=== PATIENT | female | born 1970 | race Caucasian/White ===

== ENCOUNTER 2018-03-07 16:52 | Outpatient (REF) | payer MEDICARE, MEDICAID, SELFPAY ==
[2018-03-07 20:50] LABS: TSH (W/Ref FT4) 80.66 uIU/mL (0.358-3.74)
[2018-03-07 21:34] LABS: FREE T4 0.83 ng/dL (0.76-1.46)
== END 2018-03-07 17:12 ==
LOC: NCHCN 16:52
PROVIDERS: Referring Provider Nurse Practitioner Family; Visit Provider Nurse Practitioner Family
DX: E03.9 Hypothyroidism, unspecified (principal); F32.9 Major depressive disorder, single episode, unspecified; J44.9 Chronic obstructive pulmonary disease, unspecified; F17.200 Nicotine dependence, unspecified, uncomplicated; R40.0 Somnolence; K74.60 Unspecified cirrhosis of liver; M54.5 Low back pain; G43.109 Migraine with aura, not intractable, without status migrainosus
CPT/HCPCS: 84439; 84443

== ENCOUNTER 2018-05-04 16:20 | Outpatient (REF) | payer MEDICARE, MEDICAID, SELFPAY ==
[2018-05-04 22:28] LABS: TSH (W/Ref FT4) 23.27 uIU/mL (0.358-3.74)
[2018-05-04 23:01] LABS: FREE T4 0.73 ng/dL (0.76-1.46)
== END 2018-05-04 16:40 ==
LOC: NCHCN 16:20
PROVIDERS: Visit Provider Nurse Practitioner Family
DX: J02.9 Acute pharyngitis, unspecified (principal); G43.109 Migraine with aura, not intractable, without status migrainosus; E03.9 Hypothyroidism, unspecified; J44.9 Chronic obstructive pulmonary disease, unspecified; M54.5 Low back pain; R40.0 Somnolence; F32.9 Major depressive disorder, single episode, unspecified; Z79.01 Long term (current) use of anticoagulants
CPT/HCPCS: 84439; 84443

== ENCOUNTER 2018-06-06 15:08 | Outpatient (REF) | payer MEDICARE, MEDICAID, SELFPAY ==
[2018-06-07 10:02] LABS: Anion Gap 11.1 mmol/L (3-11); BUN 22 mg/dL (7-18); CO2 30.9 mmol/L (21.0-32.0); Calcium 10.2 mg/dL (8.5-10.1); Chloride 97 mmol/L (98-107); Estimated GFR 48.58 (mL/min/1.73m2); Glucose 78 mg/dL (70-100); Potassium 4.1 mmol/L (3.5-5.1); Sodium 139 mmol/L (136-145)
[2018-06-07 10:33] LABS: TSH (W/Ref FT4) 127.88 uIU/mL (0.358-3.74)
[2018-06-07 10:37] LABS: Cholesterol 183 mg/dL (50-200); HDL Cholesterol 65 mg/dL (40-60); LDL CHOLESTEROL 99 mg/dL (<100); Triglyceride 73 mg/dL (30-150)
[2018-06-07 10:53] LABS: FREE T4 0.55 ng/dL (0.76-1.46)
== END 2018-06-06 15:28 ==
LOC: NCHCN 15:08
PROVIDERS: Visit Provider Nurse Practitioner Family
DX: E03.9 Hypothyroidism, unspecified (principal); I48.2 Chronic atrial fibrillation; G47.00 Insomnia, unspecified; J44.9 Chronic obstructive pulmonary disease, unspecified; F17.200 Nicotine dependence, unspecified, uncomplicated; G43.109 Migraine with aura, not intractable, without status migrainosus; J01.90 Acute sinusitis, unspecified; M54.5 Low back pain
CPT/HCPCS: 80048; 80061; 83721; 84439; 84443

== ENCOUNTER 2018-07-06 16:26 | Outpatient (REF) | payer MEDICARE, MEDICAID, SELFPAY ==
[2018-07-06 21:32] LABS: Calcium 10.6 mg/dL (8.5-10.1)
[2018-07-06 22:02] LABS: TSH (W/Ref FT4) 118.56 uIU/mL (0.358-3.74)
[2018-07-06 22:18] LABS: FREE T4 0.46 ng/dL (0.76-1.46)
== END 2018-07-06 16:46 ==
LOC: NCHCN 16:26
PROVIDERS: Visit Provider Nurse Practitioner Family
DX: E03.9 Hypothyroidism, unspecified (principal); J44.9 Chronic obstructive pulmonary disease, unspecified; F43.22 Adjustment disorder with anxiety; F17.200 Nicotine dependence, unspecified, uncomplicated; R40.0 Somnolence; M54.5 Low back pain; G43.109 Migraine with aura, not intractable, without status migrainosus
CPT/HCPCS: 82310; 84439; 84443

== ENCOUNTER 2018-07-12 14:42 | Outpatient (CLI) | payer MEDICARE, MEDICAID, SELFPAY ==
[2018-07-12 15:15] LABS: INR 1.5 (0.9-1.1)
== END 2018-07-12 15:02 ==
PROVIDERS: PCP Nurse Practitioner Family; Visit Provider Nurse Practitioner Family
DX: I48.92 Unspecified atrial flutter (principal); Z79.01 Long term (current) use of anticoagulants
CPT/HCPCS: 36415; 85610

== ENCOUNTER 2018-09-28 16:19 | Outpatient (CLI) | payer MEDICARE, MEDICAID, SELFPAY ==
[2018-09-28 16:52] LABS: Abs Immature Grans 0.01 k/cumm (0.0-0.09); Absolute Basophil Count 0.05 k/cumm (0.0-0.2); Absolute Lymphocyte Count 0.97 k/cumm (1.2-3.4); Absolute Monocyte Count 0.43 k/cumm (0.11-0.7); Absolute Neutrophil Count 3.87 k/cumm (1.2-6.7); Basophils % 0.9; Eosinophils % 1.8; HCT 38.6 % (36.0-46.0); HGB 13.2 g/dL (12.0-15.5); Immature Grans % 0.2; Lymphocytes % 17.9; Mean Corp. HGB Concentration 34.2 g/dL (32.0-36.0); Mean Corpuscular Hemoglobin 32.4 pg (27.0-33.0); Mean Corpuscular Volume 94.6 fL (80-95); Mean Platelet Volume 8.9 fL (8.0-11.0); Monocytes % 7.9; Neutrophils % 71.3; Platelet Count 123 x1000/uL (130-400); RBC 4.08 m/cumm (4.00-5.20); RBC Distribution Width 16.7 % (11.7-14.6); White Blood Cell Count 5.43 k/cumm (4.4-10.8)
[2018-09-28 17:49] LABS: Iron 92 ug/dL (50-175)
[2018-09-28 18:13] LABS: Vitamin D 25 Total 10.2 ng/ml (30-100)
[2018-09-28 18:25] LABS: ALT 32 U/L (12-78); AST 34 U/L (15-37); Albumin 4.8 g/dL (3.4-5.0); Alkaline Phosphatase 110 U/L (46-116); Anion Gap 9.9 mmol/L (3-11); BUN 26 mg/dL (7-18); CO2 30.1 mmol/L (21.0-32.0); Chloride 97 mmol/L (98-107); Estimated GFR 30.29 (mL/min/1.73m2); Ferritin 139 ng/mL (8-388); Glucose 119 mg/dL (70-100); Magnesium 2.1 mg/dL (1.8-2.4); Potassium 3.9 mmol/L (3.5-5.1); Sodium 137 mmol/L (136-145); Total Protein 8.3 g/dL (6.4-8.2); Vitamin B12 875 pg/mL (193-986)
[2018-09-28 19:10] LABS: TSH (W/Ref FT4) 279.79 uIU/mL (0.358-3.74)
[2018-09-28 20:15] LABS: FREE T4 0.33 ng/dL (0.76-1.46)
[2018-09-29 16:07] LABS: Ionized Calcium 1.12 mmol/L (1.12-1.32)
[2018-10-02 11:10] LABS: Parathyroid Hormone,Intact 132 pg/ml (19-88)
== END 2018-09-28 16:39 ==
PROVIDERS: PCP Nurse Practitioner Family; Visit Provider Nurse Practitioner Family
DX: R40.0 Somnolence (principal); D69.6 Thrombocytopenia, unspecified; E83.52 Hypercalcemia; E03.9 Hypothyroidism, unspecified
CPT/HCPCS: 36415; 80053; 82306; 82330; 82607; 82728; 83540; 83735; 83970; 84439; 84443; 85025

== ENCOUNTER 2018-10-04 14:39 | Outpatient (CLI) | payer MEDICARE, MEDICAID, SELFPAY ==
[2018-10-04 15:03] LABS: INR 3.2 (0.9-1.1); Prothrombin Time 32.5 sec (9.3-11.0)
== END 2018-10-04 14:59 ==
PROVIDERS: PCP Nurse Practitioner Family; Visit Provider Nurse Practitioner Family
DX: I48.92 Unspecified atrial flutter (principal); Z79.01 Long term (current) use of anticoagulants
CPT/HCPCS: 36415; 85610

== ENCOUNTER 2019-01-09 15:26 | Outpatient (CLI) | payer MEDICARE, MEDICAID, SELFPAY ==
[2019-01-09 16:14] LABS: INR 3.9 (0.9-1.1)
== END 2019-01-09 15:46 ==
PROVIDERS: PCP Nurse Practitioner Family; Visit Provider Nurse Practitioner Family
DX: I48.92 Unspecified atrial flutter (principal); Z79.01 Long term (current) use of anticoagulants
CPT/HCPCS: 36415; 85610

== ENCOUNTER 2019-02-20 10:40 | Outpatient (CLI) | payer MEDICARE, MEDICAID, SELFPAY ==
[2019-02-20 11:51] LABS: Absolute Basophil Count 0.04 k/cumm (0.0-0.2); Absolute Eosinophil Count 0.12 k/cumm (0.0-0.7); Absolute Monocyte Count 0.21 k/cumm (0.11-0.7); Absolute Neutrophil Count 2.04 k/cumm (1.2-6.7); Basophils % 1.2; Eosinophils % 3.7; HCT 40.2 % (36.0-46.0); HGB 13.1 g/dL (12.0-15.5); Lymphocytes % 24.9; Mean Corp. HGB Concentration 32.6 g/dL (32.0-36.0); Mean Corpuscular Volume 92.2 fL (80-95); Mean Platelet Volume 9.6 fL (8.0-11.0); Monocytes % 6.5; Neutrophils % 63.7; Platelet Count 139 x1000/uL (130-400); RBC 4.36 m/cumm (4.00-5.20); RBC Distribution Width 20.4 % (11.7-14.6); White Blood Cell Count 3.21 k/cumm (4.4-10.8)
[2019-02-20 11:53] LABS: Hemoglobin A1C 6.1 % (4.5-6.2); INR 2.8 (0.9-1.1); Prothrombin Time 28.4 sec (9.3-11.0)
[2019-02-20 12:40] LABS: Anisocytosis 2+; Diff Comment RBC Morph Reviewed; Hypochromasia 1+; Poikilocytes 1+
[2019-02-20 15:01] LABS: ALT 17 U/L (14-59); AST 18 U/L (15-37); Alkaline Phosphatase 110 U/L (46-116); Anion Gap 6.8 mmol/L (3-11); BUN 10 mg/dL (7-18); Bilirubin, Total 0.7 mg/dL (0.2-1.0); CO2 30.2 mmol/L (21.0-32.0); CREATININE 1.05 mg/dL (0.55-1.02); Calcium 9.4 mg/dL (8.5-10.1); Chloride 105 mmol/L (98-107); Estimated GFR 56.42 (mL/min/1.73m2); Glucose 81 mg/dL (70-100); Potassium 4.3 mmol/L (3.5-5.1); Sodium 142 mmol/L (136-145); TSH 95.31 uIU/mL (0.36-3.74); Total Protein 7.2 g/dL (6.4-8.2)
[2019-02-20 15:05] LABS: Digoxin < 0.20 ng/mL (0.90-2.00)
[2019-02-20 15:23] LABS: FREE T4 0.61 ng/dL (0.76-1.46); NT-proBNP 1101 pg/mL
[2019-02-20 21:14] LABS: Ionized Calcium 1.19 mmol/L (1.12-1.32)
[2019-02-21 11:32] LABS: AFP Tumor Marker <2.5 ng/mL (<8.1)
[2019-02-21 12:58] LABS: Parathyroid Hormone,Intact 113 pg/ml (19-88)
[2019-02-22 04:49] LABS: Vitamin D 25 Total 21.4 ng/ml (30-100)
== END 2019-02-20 11:00 ==
PROVIDERS: PCP Nurse Practitioner Family; Visit Provider Nurse Practitioner Family
DX: I48.92 Unspecified atrial flutter (principal); Z79.01 Long term (current) use of anticoagulants; J45.40 Moderate persistent asthma, uncomplicated; Q24.9 Congenital malformation of heart, unspecified; E03.9 Hypothyroidism, unspecified; E55.9 Vitamin D deficiency, unspecified; R79.89 Other specified abnormal findings of blood chemistry; J44.9 Chronic obstructive pulmonary disease, unspecified; K74.60 Unspecified cirrhosis of liver; E83.52 Hypercalcemia; Z51.81 Encounter for therapeutic drug level monitoring; R06.01 Orthopnea; R06.02 Shortness of breath
CPT/HCPCS: 36415; 80053; 82306; 80162; 82105; 82330; 83036; 83880; 83970; 84439; 84443; 84481; 85025; 85610

== ENCOUNTER 2019-02-22 18:17 | Outpatient (REF) | payer MEDICARE, MEDICAID, SELFPAY ==
--- NOTE | 2019-02-22 14:30 | PAPFT_PTH ---
PATIENT: Marissa Dumont [id number] AGE/SX: 48/F ROOM: RE02/22/[address]: Anna Rodriguez : 1970 BED: DIS: 02/22/2019 SPEC #: [id number] RECD: 02/23/19 13:06 STATUS: MARY REFabien #: [id number] CARMENCITA: 02/22/19 14:[address]: Anna Rodriguez DEPT: [facility] Cytology RECD BY: Lorraine Niño Tissues: 1 - CX/ENDOCX FOR PAP SMEARS Procedures: PAP THIN PREP/UVM Screening HPV DNA PROBE Comments: [id number] (CHLAMYDIA/GC)
[2019-02-26 14:08] LABS: Chlamydia Result Negative; GC Result Negative; Specimen Description SEE COMMENTS
== END 2019-02-22 18:37 ==
LOC: NCHCN 18:17
PROVIDERS: PCP Nurse Practitioner Family; Visit Provider Nurse Practitioner Family
DX: Z11.3 Encounter for screening for infections with a predominantly sexual mode of transmission (principal); Z12.4 Encounter for screening for malignant neoplasm of cervix; Z11.51 Encounter for screening for human papillomavirus (HPV)
CPT/HCPCS: 87491; 87591; 88142; 87624

== ENCOUNTER 2019-03-22 16:24 | Outpatient (REF) | payer MEDICARE, MEDICAID, SELFPAY ==
[2019-03-22 22:07] LABS: INR 2.1 (0.9-1.1)
== END 2019-03-22 16:44 ==
LOC: NCHCO 16:24
PROVIDERS: PCP Nurse Practitioner Family; Visit Provider Nurse Practitioner Family
DX: I48.20 Chronic atrial fibrillation, unspecified (principal); E21.5 Disorder of parathyroid gland, unspecified
CPT/HCPCS: 84443; 85610

== ENCOUNTER 2019-03-25 16:24 | Inpatient (IN) | payer MEDICARE, MEDICAID, SELFPAY ==
[2019-03-25] VITALS (17 sets, daily range): BP systolic 74–115; BP diastolic 14–69; PULSE 57–79; RESP 1–19; TEMP 36.7–38.5; O2SAT 85–95
--- NOTE | 2019-03-25 17:04 | DI.RAD_ITS ---
EXAM: XR CHEST 2V PA LATERAL INDICATION: cough. COMPARISON: RIGHT RIBS TO INCLUDE CXR from 12/28/2016 TECHNIQUE: 2D digital imaging was performed. FINDINGS: Patchy densities are noted in both lungs and could represent a multifocal pneumonitis. There is no p leural effusion. The heart is top limits of normal in size in this patient who is status post aortic valve replacement. IMPRESSION: Findings consistent with acute pneumonitis. Incidental note is made of new lateral fractures when com pared with the prior study dating back to 2016. There is an old right lateral rib fracture. The heart is top limits of normal in size to mildly enlarged.
[2019-03-25] MEDS: Lactated Ringers 500 ML IV ×2 (17:12→17:44)
[2019-03-25 17:17] LABS: Bilirubin Negative (Negative); Blood Trace-intact (Negative); Clarity Clear (Clear); Glucose Negative (Negative); Ketones Negative (Negative); Leukocyte Esterase Negative (Negative); Nitrite Negative (Negative)
[2019-03-25] MEDS: Albuterol/Ipratropium 3 ML UPD VIAL UPD (17:26)
--- NOTE | 2019-03-25 17:30 | W.ED.GENAD ---
Discharge Plan Disposition Patient Disposition: [facility] INPATIENT Condition: Fair Discharge Details Chief Complaint: Nausea/Vomit/Diar Clinical Impression: COPD exacerbation, Pneumonia Admit Date/Time: 03/25/19 19:07 Admit Provider: Geovanni Workman Attending Provider: Geovanni Workman Primary Care Provider: Anna Rodriguez ED Provider: Flakito Frias Discharge Instructions Activity:: Activity as Tolerated Equipment/Supplies:: 3.5 L at rest, 4 L with activity; also, a nebulizer machine Diet:: Heart healthy carb consistent Discharge Orders Discharge Orders: Discharge Order (Routine); Ordered 03/29/19 Ordered By: Yuliana Nunez Discharge Data Discharge Date/Time-TO BE ENTERED AT DEPARTURE: 03/25/19 20:35 Medical Decision Making Patient presenting to the emergency department for chief complaint of cough, nasal congestion, vomiting and diarrhea. Patient states this started 5 days ago with cough and cold-like symptoms with some diarrhea. Patient states the vomiting is mostly with severe coughing episodes. Today though with coughing she did have some blood-tinged sputum that was more of a concern for her. Patient has significant medical history of congenital heart disease, COPD with oxygen dependence, hypothyroidism, severe liver cirrhosis, asthma. Patient does state body aches, subjective fever, not having much oral intake today. Physical exam shows diffuse wheezing throughout all lung zacarias, unremarkable HEENT exam, some active dry cough, unremarkable abdominal exam. Plan to give IV fluids, check labs, chest x-ray, and give DuoNeb. Review of labs show negative influenza, no leukocytosis, mild anemia which is not severely different from previous episodes, slight thrombocytopenia at 87, nondiagnostic urine. Radiologist interpretation of chest x-ray shows Bilateral pneumonia. 2. New left lateral rib fractures compared to prior study April 2017. Old right lateral rib fractures.3. Cardiomegaly. Given patient's significant medical core morbidities with pneumonia I do feel the patient needs to be admitted. Patient started on Rocephin and doxy both given IV and hospitalist was consulted. Patient admitted to hospitalist services and patient is agreeable to this plan of care. HPI General Mode of arrival: ambulatory. Date/Time Provider Initiated Documentation: 03/25/19 16:27. Limitations to Documentation: no limitations. Information obtained by: patient and RN notes reviewed. History of Present Illness 48 year old F presents to the emergency department with the chief complaint of cough, vomitting, nasal congestion, described as moderate, with intensity rated at 7. Quality is described as aching, and is localized to the abdomen (from coughing). Patient started experiencing this day(s) (5) and it has been constant. No relieving factors improve symptom(s), No exacerbating factors reported . Patient did receive the following treatments prior to arrival, none Related Data Home Medications Medication Instructions Recorded Confirmed digoxin [Lanoxin] 250 mcg PO DAILY 10/16/12 03/25/19 fluticasone propion-salmeterol 1 ea INHALATION DAILY 10/16/12 03/25/19 [Advair Diskus] furosemide [Lasix] 40 mg PO DAILY 10/16/12 03/25/19 levothyroxine 200 mcg PO DAILY 10/16/12 03/25/19 ranitidine HCl [Zantac Maximum 150 mg PO BID 10/16/12 03/25/19 Strength] sotalol [Betapace] 80 mg PO BID 10/16/12 03/25/19 spironolactone 25 mg PO DAILY 10/16/12 03/25/19 albuterol sulfate [ProAir HFA] 2 puff INHALATION PRN 03/20/14 03/25/19 lisinopril 10 mg DAILY 03/28/14 03/25/19 Spiriva with HandiHaler 1 cap INHALATION DAILY 10/28/15 03/25/19 montelukast [Singulair] 10 mg PO DAILY PRN 10/28/15 03/25/19 sertraline 100 mg PO DAILY 10/28/15 03/25/19 Lactobacillus acidophilus 1 10 mg PO DAILY 03/13/19 03/25/19 billion cell capsule Oxygen #1 each 03/13/19 03/25/19 gabapentin 100 mg capsule 100 mg PO TID 03/13/19 03/25/19 albuterol sulfate 2.5 mg UPD Q2H PRN PRN #180 ml 03/29/19 prednisone See Rx Instructions .ROUTE 03/29/19 .COMPLEX #13 tab Previous Rx's Medication Instructions Recorded albuterol sulfate 2.5 mg UPD Q2H PRN PRN #180 ml 03/29/19 prednisone See Rx Instructions .ROUTE 03/29/19 .COMPLEX #13 tab Allergies Allergy/AdvReac Type Severity Reaction Status Date / Time varenicline [From Chantix] Allergy Unknown unknown Verified 03/25/19 16:43 meperidine HCl [From Demerol] AdvReac Intermediate headaches Unverified 03/25/19 16:43 General Stated Complaint: Nausea/Vomit/Diar BABS: 3 Review of Systems Constitutional Constitutional: Reports body ache(s), Reports chills, Reports fever(s), Reports headache(s) and Reports malaise ENT Ears, Nose, Mouth, and Throat: Reports as per HPI, Denies ear discharge, Denies otalgia, Reports headache(s), Reports nasal congestion, Denies neck pain and Denies sore throat Cardiovascular Cardiovascular: Denies chest pain and Denies dyspnea Respiratory Respiratory: Reports cough, Reports hemoptysis and Denies dyspnea Gastrointestinal Gastrointestinal: Reports diarrhea, Reports vomiting and Denies hematemesis Musculoskeletal Musculoskeletal: Denies neck pain Integumentary/Breasts Skin/Breast: Denies rash Neurologic Neurologic: Reports headache(s) [facility] Medical History (Updated 03/29/19 @ 11:20 by Yuliana Nunez MD) Asthma (Chronic) Congenital heart disease (Inactive) COPD (chronic obstructive pulmonary disease) (Chronic) Depression (Chronic) Hypothyroid (Chronic) Liver cirrhosis (Acute) Memory loss (Acute) Pacemaker (Acute) Stroke (Chronic) Surgical History (Updated 03/29/19 @ 11:20 by Yuliana Nunez MD) H/O cardiac pacemaker (Acute) H/O mitral valve replacement with mechanical valve (Acute) Repair of umbilical hernia (08/31/16) Social History Smoking/Tobacco Use Status: Current-Occasional Tobacco Type: cigarettes Alcohol Intake: never Drug use: Socially Substance use type: marijuana Do you feel safe at home: Yes Do you feel safe in your relationship?: Yes Exam Const General: cooperative, comfortable and no acute distress Orientation: alert and awake [facility] [place] Head: normal to inspection, normocephalic and atraumatic Ears: hearing grossly normal bilaterally and TM's normal bilaterally General nose exam: external nose normal Face and sinus: no erythema Mouth: oral mucosae normal, no drooling, no muffled voice and no trismus Throat: posterior oropharynx normal, tonsils normal and uvula midline Neck Neck: normal visual inspection, full ROM, no lymphadenopathy, no meningeal signs, trachea midline and supple Resp Effort & Inspection: normal respiratory effort and able to speak in complete sentences Auscultation: wheezes expiratory wheezes and scattered wheezes Cardio Rate: regular rate Rhythm: regular rhythm Heart Sounds: S1 normal, S2 normal, normal S1 and S2, no click, no gallops, no murmurs and no rubs GI Palpation: soft, no guarding, not rigid and nontender Skin General skin exam: no rashes or lesions noted and dry skin (warm) Neuro General: alert and awake Course Vital Signs Vital signs: Vital Signs Temperature 36.7 C 03/25/19 16:31 Pulse 66 03/25/19 16:31 Respiratory Rate 16 03/25/19 16:31 Blood Pressure 115/69 03/25/19 16:31 Pulse Oximetry 85 L 03/25/19 16:31 Temperature 36.7 C 03/25/19 16:31 Pulse 61 03/25/19 17:15 Pulse 61 03/25/19 17:15 Respiratory Rate 18 03/25/19 17:15 Respiratory Effort Non-Labored 03/25/19 16:45 Blood Pressure 108/47 L 03/25/19 17:15 Blood Pressure Mean 60 03/25/19 17:15 Pulse Oximetry 95 03/25/19 17:26 Oxygen Delivery Method Nasal Cannula 03/25/19 17:26 Oxygen Flow Rate 2 03/25/19 17:26 Pain Level 7 03/25/19 16:31 Lab/Test Results Lab/Test Results: 03/25/19 17:12 Nasopharynx Influenza Types A,B Antigen - Pending 03/25/19 17:04 Blood Blood Culture - Pending 03/25/19 17:04 Blood Blood Culture - Pending Laboratory Tests Range/Units 03/25/19 16:35 Urine Color (Yellow) Yellow Urine Clarity (Clear) Clear Urine pH (5-8) 5.0 Ur Specific [place] (1.005-1.025) 1.010 Urine Protein (Negative) mg/dL Negative Urine Ketones (Negative) mg/dL Negative Urine Blood (Negative) Trace-intact H Urine Nitrite (Negative) Negative Urine Bilirubin (Negative) Negative Urine Urobilinogen (Up TO 0.2) EU/dL 1.0 H Ur Leukocyte Esterase (Negative) Negative Urine Glucose (Negative) mg/dL Negative
[2019-03-25 17:36] LABS: Bacteria Negative HPF (Negative); C & S Indicated? No; Casts Negative LPF (Negative); Crystals Negative HPF (Negative); Epithelial Cells Few HPF (Negative); Mucus Negative (Negative); Other Cells Negative (Negative); RBC 0-2 (0-2); WBC 0-2 HPF (0-5)
[2019-03-25 17:45] LABS: Lactate 0.8 mmol/L (0.6-1.4)
[2019-03-25 17:51] LABS: Abs Immature Grans 0.01 k/cumm (0.0-0.09); Absolute Basophil Count 0.03 k/cumm (0.0-0.2); Absolute Eosinophil Count 0.06 k/cumm (0.0-0.7); Absolute Lymphocyte Count 0.83 k/cumm (1.2-3.4); Absolute Monocyte Count 0.71 k/cumm (0.11-0.7); Absolute Neutrophil Count 3.46 k/cumm (1.2-6.7); Basophils % 0.6; Eosinophils % 1.2; HCT 33.9 % (36.0-46.0); HGB 11.7 g/dL (12.0-15.5); Immature Grans % 0.2; Lymphocytes % 16.3; Mean Corp. HGB Concentration 34.5 g/dL (32.0-36.0); Mean Corpuscular Hemoglobin 32.1 pg (27.0-33.0); Mean Corpuscular Volume 93.1 fL (80-95); Mean Platelet Volume 11.7 fL (8.0-11.0); Monocytes % 13.9; Neutrophils % 67.8; RBC 3.64 m/cumm (4.00-5.20); RBC Distribution Width 16.9 % (11.7-14.6)
[2019-03-25 17:53] LABS: Platelet Count 87 x1000/uL (130-400)
[2019-03-25 18:05] LABS: ALT 28 U/L (14-59); AST 32 U/L (15-37); Alkaline Phosphatase 122 U/L (46-116); Anion Gap 11.7 mmol/L (3-11); BUN 19 mg/dL (7-18); Bilirubin, Total 3.1 mg/dL (0.2-1.0); CO2 25.3 mmol/L (21.0-32.0); CREATININE 1.17 mg/dL (0.55-1.02); Calcium 9.2 mg/dL (8.5-10.1); Chloride 101 mmol/L (98-107); Glucose 95 mg/dL (70-100); Lipase 87 U/L (73-393); Potassium 3.6 mmol/L (3.5-5.1); Sodium 138 mmol/L (136-145); Total Protein 7.8 g/dL (6.4-8.2)
[2019-03-25 18:15] LABS: Diff Comment PLT Morph Reviewed; RBC Morphology Normal
[2019-03-25] MEDS: Albuterol/Ipratropium 3 ML UPD VIAL (18:25)
--- NOTE | 2019-03-25 19:01 | DI.VRAD_ITS ---
PROCEDURE INFORMATION: Exam: XR Chest, 2 Views Exam date and time: 03/25/2019 6:35 PM Clinical history: 48 years old, female; Other: Cough; Prior surgery; Surgery date: 6+ months TECHNIQUE: Imaging protocol: XR of the chest Views: 2 views. COMPARISON: CR RIGHT RIBS TO INCLUDE CXR 04/26/2017 10:38 FINDINGS: Tubes, catheters and devices: Left catheter overlying the left upper shoulder and chest unchanged from prior study. The cardiac leads in place Lungs: Bilateral patchy infiltrates. Pleural space: Blunted left lateral costophrenic angle. Heart/Mediastinum: Prosthetic valve. Cardiomegaly. Bones/joints: Sternotomy wires in place. Lateral fractures. Old right lateral rib fractures. IMPRESSION: 1. Bilateral pneumonia. 2. New left lateral rib fractures compared to prior study April 2017. Old right lateral rib fractures. 3. Cardiomegaly. Dictated and Authenticated by: Lizbeth Alonso MD. Ordering:JOHN Fraga MD
[2019-03-25] MEDS: DOXYCYCLINE 100 MG in Normal Saline 100 ML IVPB (19:15)
[2019-03-25] MEDS: cefTRIAXone 1 GM/50 ML BAG IVPB (19:15)
[2019-03-25 19:23] LABS: INR 1.6 (0.9-1.1); Prothrombin Time 15.9 sec (9.3-11.0)
--- NOTE | 2019-03-25 19:23 | W.PM.HP.N ---
Date of service: 03/25/19 Time of Service: 19:24 Assessment and Plan Assessment and plan (1) Pneumonia: Start date: 03/25/19 Status: Acute Assessment and plan: This is a 48-year-old chronically ill patient with stable chronic problems presented with acute patchy bilateral infiltrates and pneumonia now with fever and hypoxemia. She was started on Rocephin and doxycycline which will be continued IV with her decreased oral intake. Follow-up imaging as appropriate and continue supportive care with nebulizers and oxygen supplementation. She does also have exacerbation of COPD. Qualifiers: Laterality: bilateral Lung location: unspecified part of lung Pneumonia type: due to unspecified organism Qualified Code(s): J18.9 - Pneumonia, unspecified organism (2) COPD exacerbation: Start date: 03/25/19 Status: Acute Assessment and plan: IV Solu-Medrol with nebulizer treatments more frequently. Patient is not smoking and is not requiring a nicotine supplement as of yet. Continue oxygen supplementation. (3) Cirrhosis: Status: Chronic Assessment and plan: This appears stable with increased liver function tests and decreased platelets. Follow closely for bleeding sequelae with the patient on warfarin for mechanical valve according to the patient though she also has a history of atrial fibrillation with a pacemaker and paced rhythm presently. Qualifiers: Ascites presence: unspecified Hepatic cirrhosis type: unspecified hepatic cirrhosis Qualified Code(s): K74.60 - Unspecified cirrhosis of liver (4) Atrial fibrillation: Status: Chronic Assessment and plan: Monitor on telemetry and continue Coumadin therapy adjusting to therapeutic INR. Qualifiers: Atrial fibrillation type: paroxysmal Qualified Code(s): I48.0 - Paroxysmal atrial fibrillation (5) Hypothyroidism: Status: Chronic Assessment and plan: This appears to be undertreated at this time and in the recent past and could be contributory metabolic disorders. He states that she takes her Synthroid each morning on empty stomach but this needs to be adjusted chronically and follow-up as an outpatient. Qualifiers: Hypothyroidism type: acquired Qualified Code(s): E03.9 - Hypothyroidism, unspecified History of Present Illness History of Present Illness Chief Complaint: Cough with dyspnea, vomiting and diarrhea over 5 days Narrative: This is a 48-year-old lady who presented to the ED with a 5-day history of viral type illness with upper respiratory symptoms and GI symptoms with diarrhea and vomiting. She had a cough which was worsening and it when she presented she was hypoxic with increased wheezing with a history of COPD and persistent tobacco use though she quit 5 days ago when she began to have her acute symptoms. In the ED she was found to have bilateral pneumonia by CXR and clinically was hypoxic eventually manifesting fever when she was brought to the floor and persistent cough with wheezing. 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 She is on Coumadin because of her mechanical valve and a history of PAF. She does have CKD with chronic anemia which appears stable. She did have decreased intake the last couple of days of her illness. She was doing well with oral intake at the time I saw her. She chronically has some edema which she is on diuretics but denies being on steroids in the past though she appears to have a ennis facies. Review of Systems Review of Systems Narrative: 13 point review of systems otherwise unrevealing or stable. [facility] Medical History (Updated 03/26/19 @ 01:31 by Geovanni Workman) Asthma (Chronic) Congenital heart disease (Inactive) COPD (chronic obstructive pulmonary disease) (Chronic) Depression (Chronic) Hypothyroid (Chronic) Liver cirrhosis (Acute) Memory loss (Acute) Pacemaker (Acute) Stroke (Chronic) Surgical History Repair of umbilical hernia (08/31/16) Social History Smoking/Tobacco Use Status: Current-Occasional Tobacco Type: cigarettes Alcohol Intake: never Drug use: Socially Substance use type: marijuana Do you feel safe at home: Yes Do you feel safe in your relationship?: Yes Meds Home Medications and Allergies Home Medications Medication Instructions Recorded Confirmed Type digoxin [Lanoxin] 250 mcg PO DAILY 10/16/12 03/25/19 History fluticasone propion-salmeterol 1 ea INHALATION DAILY 10/16/12 03/25/19 History [Advair 250/50 Diskus] furosemide [Lasix] 40 mg PO DAILY 10/16/12 03/25/19 History levothyroxine 200 mcg PO DAILY 10/16/12 03/25/19 History ranitidine HCl [Zantac] 150 mg PO BID 10/16/12 03/25/19 History sotalol [Betapace] 80 mg PO BID 10/16/12 03/25/19 History spironolactone 25 mg PO DAILY 10/16/12 03/25/19 History albuterol sulfate 3 ml NEB PRN 03/20/14 03/25/19 History albuterol sulfate [Proair Hfa] 2 puff INHALATION PRN 03/20/14 03/25/19 History lisinopril 10 mg DAILY 03/28/14 03/25/19 History montelukast [Singulair] 10 mg PO DAILY PRN 10/28/15 03/25/19 History sertraline 100 mg PO DAILY 10/28/15 03/25/19 History tiotropium bromide [Spiriva] 1 cap INHALATION DAILY 10/28/15 03/25/19 History warfarin [Coumadin] 8 mg PO HS 10/28/15 03/25/19 History Lactobacillus acidophilus 1 10 mg PO DAILY 03/13/19 03/25/19 History billion cell capsule Oxygen #1 each 03/13/19 03/25/19 History gabapentin 100 mg capsule 100 mg PO TID 03/13/19 03/25/19 History Allergies Allergy/AdvReac Type Severity Reaction Status Date / Time varenicline [From Chantix] Allergy Unknown unknown Verified 03/25/19 16:43 meperidine HCl [From Demerol] AdvReac Intermediate headaches Unverified 03/25/19 16:43 Exam Narrative Exam Narrative: General: Patient appears older than stated age with ennis facies and edema over her upper body and trunk but thin lower extremities. She is alert and oriented x3 and in no acute distress. HEENT: Normocephalic, ennis facies. Thin hair over her scalp. Ears normal. Oropharynx moist mucosa. Eyes with pupils equal and reactive to light symmetrically, extraocular movement intact and sclera anicteric. Neck: Supple without JVD. Lungs: Bronchovesicular breath sounds diffusely, increased expiratory phase with diffuse expiratory wheeze, no focalizing rales and upper airway rhonchi with cough. Poor aeration but no intercostal retractions with inspiration. Palpable pacemaker over chest. Heart: Regular rate and rhythm with 4/6 systolic murmur and mechanical valve click over the sternum. No appreciable gallop. No rubs. Breast: Not examined. Abdomen: obese contour, soft and nontender with no palpable hepatosplenomegaly. Bowel sounds positive in all quadrants. Genitalia/rectal: Not examined. Extremities: No pitting edema, no cyanosis or clubbing. Peripheral pulses intact with good capillary refill. Skin: Pale, warm and dry. No rashes noted. Normal turgor. Neuro: Cranial nerves II through XII grossly intact, motor and sensory grossly intact. Results Imaging Imaging Studies: Exam(s) PROCEDURE INFORMATION: Exam: XR Chest, 2 Views Exam date and time: 03/25/2019 6:35 PM Clinical history: 48 years old, female; Other: Cough; Prior surgery; Surgery date: 6+ months TECHNIQUE: Imaging protocol: XR of the chest Views: 2 views. COMPARISON: CR RIGHT RIBS TO INCLUDE CXR 04/26/2017 10:38 FINDINGS: Tubes, catheters and devices: Left catheter overlying the left upper shoulder and chest unchanged from prior study. The cardiac leads in place Lungs: Bilateral patchy infiltrates. Pleural space: Blunted left lateral costophrenic angle. Heart/Mediastinum: Prosthetic valve. Cardiomegaly. Bones/joints: Sternotomy wires in place. Lateral fractures. Old right lateral rib fractures. IMPRESSION: 1. Bilateral pneumonia. 2. New left lateral rib fractures compared to prior study April 2017. Old right lateral rib fractures. 3. Cardiomegaly. Dictated and Authenticated by: Lizbeth Alonso MD. Labs Result diagrams: 03/25/19 17:00 03/25/19 17:00 Labs: Laboratory Results - last 24 hr 03/25/19 03/25/19 03/25/19 16:35 17:00 17:00 WBC RBC Hgb Hct MCV MCH MCHC RDW Plt Count MPV Immature Gran % Neutrophils % Lymphocytes % Monocytes % Eosinophils % Basophils % Absolute Neutrophils Absolute Lymphocytes Absolute Monocytes Absolute Eosinophils Absolute Basophils Differential Comment RBC Morphology Sodium 138 Potassium 3.6 Chloride 101 Carbon Dioxide 25.3 Anion Gap 11.7 H BUN 19 H Creatinine 1.17 H Estimated GFR/1.73 m2 49.80 Glucose 95 Lactate 0.8 Calcium 9.2 Total Bilirubin 3.1 H AST 32 ALT 28 Alkaline Phosphatase 122 H Total Protein 7.8 Albumin 4.0 Lipase 87 Urine Color Yellow Urine Clarity Clear Urine pH 5.0 Ur Specific [place] 1.010 Urine Protein Negative Urine Ketones Negative Urine Blood Trace-intact H Urine Nitrite Negative Urine Bilirubin Negative Urine Urobilinogen 1.0 H Ur Leukocyte Esterase Negative Urine RBC 0-2 Urine WBC 0-2 Ur Epithelial Cells Few Urine Crystals Negative Urine Bacteria Negative Urine Casts Negative Urine Mucus Negative Urine Other Negative Ur Culture Indicated? No Urine Glucose Negative 03/25/19 17:00 WBC 5.10 RBC 3.64 L Hgb 11.7 L Hct 33.9 L MCV 93.1 MCH 32.1 MCHC 34.5 RDW 16.9 H Plt Count 87 L MPV 11.7 H Immature Gran % 0.2 Neutrophils % 67.8 Lymphocytes % 16.3 Monocytes % 13.9 Eosinophils % 1.2 Basophils % 0.6 Absolute Neutrophils 3.46 Absolute Lymphocytes 0.83 L Absolute Monocytes 0.71 H Absolute Eosinophils 0.06 Absolute Basophils 0.03 Differential Comment Plt morph reviewed RBC Morphology Normal Sodium Potassium Chloride Carbon Dioxide Anion Gap BUN Creatinine Estimated GFR/1.73 m2 Glucose Lactate Calcium Total Bilirubin AST ALT Alkaline Phosphatase Total Protein Albumin Lipase Urine Color Urine Clarity Urine pH Ur Specific [place] Urine Protein Urine Ketones Urine Blood Urine Nitrite Urine Bilirubin Urine Urobilinogen Ur Leukocyte Esterase Urine RBC Urine WBC Ur Epithelial Cells Urine Crystals Urine Bacteria Urine Casts Urine Mucus Urine Other Ur Culture Indicated? Urine Glucose Last Vital Signs Temp 36.7 C 03/25/19 16:31 Pulse 61 03/25/19 17:15 Resp 18 03/25/19 17:15 BP 108/47 L 03/25/19 17:15 Pulse Ox 95 03/25/19 17:26
[2019-03-25 19:32] LABS: Magnesium 1.7 mg/dL (1.8-2.4)
[2019-03-25 19:46] LABS: TSH (W/Ref FT4) 81.83 uIU/mL (0.36-3.74)
[2019-03-25 20:07] LABS: FREE T4 0.66 ng/dL (0.76-1.46)
[2019-03-25] MEDS: Albuterol 2.5 MG/3 ML INH SOLN VIAL UPD (22:48)
[2019-03-25] MEDS: methylPREDNISolone SUCC 125 MG VIAL (22:49)
[2019-03-25] MEDS: Gabapentin 100 MG CAP PO (22:50)
[2019-03-25] MEDS: Warfarin 4 MG TAB 8 MG PO (22:50)
[2019-03-25] MEDS: Normal Saline Flush 10 ML SYR IVP (22:50)
[2019-03-26] VITALS (19 sets, daily range): BP systolic 94–105; BP diastolic 55–64; PULSE 57–77; RESP 1–20; TEMP 36.2–37.1; O2SAT 90–94
[2019-03-26] MEDS: Albuterol/Ipratropium 3 ML UPD VIAL UPD ×5 (00:18→23:39)
[2019-03-26] MEDS: Normal Saline Flush 10 ML SYR IVP ×5 (03:54→19:50)
[2019-03-26] MEDS: methylPREDNISolone SUCC 125 MG VIAL 80 MG IVP ×3 (03:54→19:49)
[2019-03-26] MEDS: Levothyroxine 100 MCG TAB 200 MCG PO (05:58)
[2019-03-26 07:05] LABS: ALT 23 U/L (14-59); AST 25 U/L (15-37); Albumin 3.8 g/dL (3.4-5.0); Alkaline Phosphatase 123 U/L (46-116); Anion Gap 11.7 mmol/L (3-11); BUN 17 mg/dL (7-18); Bilirubin, Total 2.7 mg/dL (0.2-1.0); CO2 26.3 mmol/L (21.0-32.0); CREATININE 1.37 mg/dL (0.55-1.02); Calcium 9.5 mg/dL (8.5-10.1); Chloride 101 mmol/L (98-107); Estimated GFR 41.51 (mL/min/1.73m2); Glucose 141 mg/dL (70-100); Potassium 3.5 mmol/L (3.5-5.1); Sodium 139 mmol/L (136-145); Total Protein 7.9 g/dL (6.4-8.2)
[2019-03-26 07:10] LABS: HCT 36.7 % (36.0-46.0); HGB 12.6 g/dL (12.0-15.5); Mean Corp. HGB Concentration 34.3 g/dL (32.0-36.0); Mean Corpuscular Hemoglobin 32.1 pg (27.0-33.0); Mean Corpuscular Volume 93.6 fL (80-95); Mean Platelet Volume 10.7 fL (8.0-11.0); RBC 3.92 m/cumm (4.00-5.20); RBC Distribution Width 16.5 % (11.7-14.6); White Blood Cell Count 5.01 k/cumm (4.4-10.8)
[2019-03-26 07:11] LABS: Digoxin 0.83 ng/mL (0.90-2.00); INR 1.7 (0.9-1.1)
[2019-03-26 07:57] LABS: Platelet Count 92 x1000/uL (130-400)
[2019-03-26 08:50] LABS: Magnesium 1.7 mg/dL (1.8-2.4)
[2019-03-26 09:02] LABS: Procalcitonin 0.1 ng/mL
[2019-03-26] MEDS: Enoxaparin 80 MG/0.8 ML SYR 70 MG SC ×2 (09:04→19:49)
[2019-03-26] MEDS: DOXYCYCLINE 100 MG in Normal Saline 100 ML IVPB ×2 (09:05→19:50)
[2019-03-26] MEDS: Digoxin 0.125 MG TAB 0.25 MG PO (09:06)
[2019-03-26] MEDS: Gabapentin 100 MG CAP PO ×3 (09:10→19:51)
[2019-03-26] MEDS: Sertraline 50 MG TAB 100 MG PO (09:10)
[2019-03-26] MEDS: Lactobacillus Acidophilus CAP 1 CAP PO (09:10)
--- NOTE | 2019-03-26 09:50 | INITIAL_ITS ---
- If Service Date Differs Date of service: 03/26/19 Time of Service: 09:50 Care Management Initial Assess REASON FOR HOSPITALIZATION:: Pneumonia PAST MEDICAL HISTORY/PAST SURGICAL HISTORY:: Medical History: Asthma (Chronic). Congenital heart disease (Inactive). COPD (chronic obstructive pulmonary disease) (Chronic). Depression (Chronic). Hypothyroid (Chronic). Liver cirrhosis (Acute). Memory loss (Acute). Pacemaker (Acute). Stroke (Chronic). Surgical History : Repair of umbilical hernia (08/31/16) PREVIOUS FUNCTIONAL STATUS/SOCIAL/FAMILY SUPPORTS:: Marissa lives in a single family home in [place] with her boyfriend Chapo, another male roomate Benny and 3 cats. She has been disabled for the last 3 years. She has a congenital heart condition, asthma and COPD. Before she became disabled, Marissa worked at [employer] in [facility]. She has no children and identifies the people she lives with as her supports. CURRENT FUNCTIONAL STATUS:: Marissa was sitting up in bed and readily engaged in conversation with CM during visit. She was pleasant and cooperative and smiled frequently during the interaction. Marissa stated she is feeling much better and hopes to be able to go home tomorrow. ADVANCE DIRECTIVES:: None on file Has patient been provided with information about the portal?: No Did the patient sign up for the portal?: No CODE STATUS:: Full Code INSURANCE COVERAGE / FINANCIAL ISSUES:: Medicare. Medicaid CURRENT HOME/COMMUNITY SERVICES/EQUIPMENT:: Marissa receives food stamps. She also uses home oxygen at 3.5 liters continuously, which is coordinated through [facility]. PRIMARY CARE PHYSICIAN:: Anna Rodriguez POTENTIAL DISCHARGE NEEDS:: Follow up with PCP and disscharge plan of care PATIENT/FAMILY EDUCATION NEEDS:: Discharge plan, limitations, follow up plan. Ask Me Three. ANTICIPATED BARRIERS TO DISCHARGE:: none identified TRANSPORTATION:: via private vehicle with boyfriend when ready. PLAN:: Marissa will likely be discharged home with no new services. She will continue to use home oxygen. She will need to follow up with her PCP and p ossibly Pulmonology.She will transport home via private vehicle with her boyfriend or roomate.
[2019-03-26] MEDS: Budesonide/Formoterol 160/4.5 6 GM 60 PUFF INH IH ×2 (09:58→19:50)
--- NOTE | 2019-03-26 10:36 | PHARADMIT ---
Addendum entered by Jammie Figueroa 03/28/19 17:08: Pharmacy Note Subjective COPD/asthma exac much better Objective INR 6.6 Assessment CXR is much better today Plan Vitamin K to be given today per morning meeting IV steroids switched to PO Continue abx (today is day 4), finish tomorrow Addendum entered by Antonella Skaggs 03/27/19 13:36: Pharmacy Note Subjective improvement but not back to baseline per Md note Objective vs ok, INR 3.9, FS 123, sputum scant growth, BC no growth 24 hours, Assessment warfarin put on hold, enoxaparin stopped, ceftriaxone and doxy continue day 2 Plan follow FS, home meds not ordered : spiriva furosemide, lisinopril and spirolnolactone were discontinued Original Note: Admission Pharmacy Clinical Review pneumonia w/hypoxemia, COPD exacerbation Code Status Full Code Current Weight 65.7 kg Renally Cleared and Narrow Therapeutic Index Meds Crcl ~45.6 mL/min using adjusted body weight digoxin- level was 0.83 QTc Value / Action Taken n/a BP Control, Fever BP 94/55 Tmax 38.5 overnight Electrolytes reviewed mag 1.7 DVT Prophylaxis enoxaprin and warfarin Opiate Usage / Scheduled Bowel Regimen Ordered no/prn Plt/SCr for Heparin / Enoxaparin plt 92 SCr 1.37 INR for Warfarin INR 1.7 H/H stable, WBC/Bands h/h 12.6/36.7 wbc 5.01 Antibiotic appropriateness ceftriaxone and doxycycline Cultures and Sensitivities blood and sputum cultures pending rapid flu negative Surgical ABX d/c within 24 hr n/a DM control / Insulin Dosing BG 141 sliding scale aspart ordered Heart Failure (Check EF%) (AYANA's, B-Block, Diuretics) sotalol IV to PO Switch n/a Home Meds Reviewed sotalol may diminish the bronchodilatory effects of albuterol and foromoterol Home Meds Not Ordered advair (symbicort ordered), spiriva furosemide, lisinopril and spirolnolactone were discontinued Comments watch plt and INR TSH-81.73 free T4-0.66
[2019-03-26] MEDS: Insulin Aspart 300 UNITS/3 ML PEN SC ×3 (12:03→21:43)
[2019-03-26] MEDS: cefTRIAXone 1 GM/50 ML BAG IVPB (17:26)
--- NOTE | 2019-03-26 18:10 | PGE_ITS ---
Date of Service Date of service: 03/26/19 Time of Service: 18:10 Assessment and Plan Assessment and plan (1) COPD exacerbation: Status: Acute Assessment and plan: COPD/asthma exacerbation. Improving. Continue empiric antibiotics, scheduled/prn nebs, steroids - would start taper tomorrow. Symbicort added in place of home advair. Smoking cessation counseling. (2) CAP (community acquired pneumonia): Status: Acute Assessment and plan: As above (3) Elevated parathyroid hormone: Status: Acute Assessment and plan: Obtain thyroid US (4) Atrial fibrillation: Status: Chronic Assessment and plan: S/p pacer - 100% VPaced on tele. Rate controlled. No change in therapy. Continue anticoagulation. Qualifiers: Atrial fibrillation type: paroxysmal Qualified Code(s): I48.0 - Paroxysmal atrial fibrillation (5) Hypothyroidism: Status: Chronic Assessment and plan: TSH quite elevated, which is chronic for this patient, but she fell out of follow up with endocrine. Will speak with [facility] endocrinology and send an outpatient referral. My impression is that the patient is s/p radioiodine ablation at the age of 17. Qualifiers: Hypothyroidism type: acquired Qualified Code(s): E03.9 - Hypothyroidism, unspecified (6) History of mitral valve replacement with mechanical valve: Status: Acute Assessment and plan: INR subtherapeutic. On lovenox bridge until INR becomes therapeutic. (7) DVT prophylaxis: Status: Acute Assessment and plan: On lovenox bridge until therapeutic INR is reached. (8) Discharge planning issues: Status: Acute Assessment and plan: Full code. Will need outpatient endocrinology follow up with [facility]. Subjective Subjective Interval history since last seen: Ms Dumont states she is feeling better today. Denies dizziness, chest pain, nausea, vomiting. Wheezing is better and cough has become less productive. PCP requests ultrasound of her thyroid. The patient is open to the idea of follow up with [facility] endocrinology. Exam Narrative Exam Narrative: General: very pleasant middle-aged female, A&Ox3, sitting in bed, eating dinner. No difficulty completing sentences. HEENT: EOMI, MMM Heart: RRR, +AYUSH (of mechanical valve) Lungs: wheezing on expiration B GI: abdomen is soft, nontender, nondistended Extremities: no e/c/c BLE's Objective Objective Clinical Data: Abnormal lab results 03/25/19 03/25/19 03/25/19 Range/Units 17:00 17:00 17:00 RBC (4.00-5.20) m/cumm RDW (11.7-14.6) % Plt Count (130-400) x1000/uL Absolute Lymphocytes 0.83 L (1.2-3.4) k/cumm Absolute Monocytes 0.71 H (0.11-0.7) k/cumm PT 15.9 H (9.3-11.0) sec INR 1.6 H (0.9-1.1) APTT 34.0 H (21.0-31.4) sec Anion Gap 11.7 H (3-11) mmol/L BUN 19 H (7-18) mg/dL Creatinine 1.17 H (0.55-1.02) mg/dL Glucose (70-100) mg/dL Magnesium (1.8-2.4) mg/dL Total Bilirubin 3.1 H (0.2-1.0) mg/dL Alkaline Phosphatase 122 H (46-116) U/L TSH (0.36-3.74) uIU/mL Free T4 (0.76-1.46) ng/dL Digoxin (0.90-2.00) ng/mL 03/25/19 03/25/19 03/26/19 Range/Units 17:00 17:00 05:35 RBC 3.92 L (4.00-5.20) m/cumm RDW 16.5 H (11.7-14.6) % Plt Count 92 L (130-400) x1000/uL Absolute Lymphocytes (1.2-3.4) k/cumm Absolute Monocytes (0.11-0.7) k/cumm PT (9.3-11.0) sec INR (0.9-1.1) APTT (21.0-31.4) sec Anion Gap (3-11) mmol/L BUN (7-18) mg/dL Creatinine (0.55-1.02) mg/dL Glucose (70-100) mg/dL Magnesium 1.7 L (1.8-2.4) mg/dL Total Bilirubin (0.2-1.0) mg/dL Alkaline Phosphatase (46-116) U/L TSH 81.83 H (0.36-3.74) uIU/mL Free T4 0.66 L (0.76-1.46) ng/dL Digoxin (0.90-2.00) ng/mL 03/26/19 03/26/19 03/26/19 Range/Units 06:28 06:28 06:28 RBC (4.00-5.20) m/cumm RDW (11.7-14.6) % Plt Count (130-400) x1000/uL Absolute Lymphocytes (1.2-3.4) k/cumm Absolute Monocytes (0.11-0.7) k/cumm PT 17.0 H (9.3-11.0) sec INR 1.7 H (0.9-1.1) APTT (21.0-31.4) sec Anion Gap 11.7 H (3-11) mmol/L BUN (7-18) mg/dL Creatinine 1.37 H (0.55-1.02) mg/dL Glucose 141 H (70-100) mg/dL Magnesium 1.7 L (1.8-2.4) mg/dL Total Bilirubin 2.7 H (0.2-1.0) mg/dL Alkaline Phosphatase 123 H (46-116) U/L TSH (0.36-3.74) uIU/mL Free T4 (0.76-1.46) ng/dL Digoxin 0.83 L (0.90-2.00) ng/mL Vital Signs Temperature 36.6 C 03/26/19 16:13 Temperature Source Tympanic 03/26/19 16:13 Pulse 60 03/26/19 16:13 Pulse Rhythm Regular 03/26/19 18:01 Pulse 61 03/25/19 17:15 Respiratory Rate 17 03/26/19 16:13 Respiratory Effort Short of Breath 03/26/19 18:01 Respiratory Depth Normal 03/26/19 18:01 Respiratory Pattern Normal 03/26/19 18:01 Blood Pressure 101/57 L 03/26/19 16:13 Blood Pressure Mean 60 03/25/19 17:15 Pulse Oximetry 91 L 03/26/19 16:13 Oxygen Delivery Method Room Air 03/26/19 16:13 Oxygen Flow Rate 0 03/26/19 16:13 Pain Level 0 03/26/19 16:13 Comment 03/26/19 09:30 Intake & Output 03/25/19 03/26/19 03/26/19 23:59 11:59 23:59 Intake Total 1150 / 1150 750 / 1090 340 / 1090 Output Total 100 / 100 100 / 100 Balance 1050 / 1050 650 / 990 340 / 990 Weight 67.1 kg 65.7 kg Intake: IV 1150 / 1150 20 / 120 100 / 120 Oral 730 / 970 240 / 970 Output: Urine 100 / 100 100 / 100 Other: Urine Color Pale Pale Yellow Yellow Urine Appearance Clear Clear Clear Urine Odor Normal Normal Stool Size Small Small Stool Characteristics Liquid Liquid Brown Brown Voiding Methods Toilet Toilet Laboratory Results WBC 5.01 k/cumm (4.4-10.8) 03/26/19 05:35 RBC 3.92 m/cumm (4.00-5.20) L 03/26/19 05:35 Hgb 12.6 g/dL (12.0-15.5) 03/26/19 05:35 Hct 36.7 % (36.0-46.0) 03/26/19 05:35 MCV 93.6 fL (80-95) 03/26/19 05:35 MCH 32.1 pg (27.0-33.0) 03/26/19 05:35 MCHC 34.3 g/dL (32.0-36.0) 03/26/19 05:35 RDW 16.5 % (11.7-14.6) H 03/26/19 05:35 Plt Count 92 x1000/uL (130-400) L 03/26/19 05:35 MPV 10.7 fL (8.0-11.0) 03/26/19 05:35 Immature Gran % 0.2 03/25/19 17:00 Neutrophils % 67.8 03/25/19 17:00 Lymphocytes % 16.3 03/25/19 17:00 Monocytes % 13.9 03/25/19 17:00 Eosinophils % 1.2 03/25/19 17:00 Basophils % 0.6 03/25/19 17:00 Absolute Neutrophils 3.46 k/cumm (1.2-6.7) 03/25/19 17:00 Absolute Lymphocytes 0.83 k/cumm (1.2-3.4) L 03/25/19 17:00 Absolute Monocytes 0.71 k/cumm (0.11-0.7) H 03/25/19 17:00 Absolute Eosinophils 0.06 k/cumm (0.0-0.7) 03/25/19 17:00 Absolute Basophils 0.03 k/cumm (0.0-0.2) 03/25/19 17:00 Differential Comment Plt morph reviewed 03/25/19 17:00 RBC Morphology Normal 03/25/19 17:00 PT 17.0 sec (9.3-11.0) H 03/26/19 06:28 INR 1.7 (0.9-1.1) H 03/26/19 06:28 APTT 34.0 sec (21.0-31.4) H 03/25/19 17:00 Sodium 139 mmol/L (136-145) 03/26/19 06:28 Potassium 3.5 mmol/L (3.5-5.1) 03/26/19 06:28 Chloride 101 mmol/L (98-107) 03/26/19 06:28 Carbon Dioxide 26.3 mmol/L (21.0-32.0) 03/26/19 06:28 Anion Gap 11.7 mmol/L (3-11) H 03/26/19 06:28 BUN 17 mg/dL (7-18) 03/26/19 06:28 Creatinine 1.37 mg/dL (0.55-1.02) H 03/26/19 06:28 Estimated GFR/1.73 m2 41.51 (mL/min/1.73m2) 03/26/19 06:28 Glucose 141 mg/dL (70-100) H 03/26/19 06:28 Lactate 0.8 mmol/L (0.6-1.4) 03/25/19 17:00 Calcium 9.5 mg/dL (8.5-10.1) 03/26/19 06:28 Magnesium 1.7 mg/dL (1.8-2.4) L 03/26/19 06:28 Total Bilirubin 2.7 mg/dL (0.2-1.0) H 03/26/19 06:28 AST 25 U/L (15-37) 03/26/19 06:28 ALT 23 U/L (14-59) 03/26/19 06:28 Alkaline Phosphatase 123 U/L (46-116) H 03/26/19 06:28 Total Protein 7.9 g/dL (6.4-8.2) 03/26/19 06:28 Albumin 3.8 g/dL (3.4-5.0) 03/26/19 06:28 Lipase 87 U/L (73-393) 03/25/19 17:00 Procalcitonin 0.1 ng/mL 03/26/19 06:28 TSH 81.83 uIU/mL (0.36-3.74) H 03/25/19 17:00 Free T4 0.66 ng/dL (0.76-1.46) L 03/25/19 17:00 Urine Color Yellow (Yellow) 03/25/19 16:35 Urine Clarity Clear (Clear) 03/25/19 16:35 Urine pH 5.0 (5-8) 03/25/19 16:35 Ur Specific [place] 1.010 (1.005-1.025) 03/25/19 16:35 Urine Protein Negative mg/dL (Negative) 03/25/19 16:35 Urine Ketones Negative mg/dL (Negative) 03/25/19 16:35 Urine Blood Trace-intact (Negative) H 03/25/19 16:35 Urine Nitrite Negative (Negative) 03/25/19 16:35 Urine Bilirubin Negative (Negative) 03/25/19 16:35 Urine Urobilinogen 1.0 EU/dL (Up TO 0.2) H 03/25/19 16:35 Ur Leukocyte Esterase Negative (Negative) 03/25/19 16:35 Urine RBC 0-2 (0-2) 03/25/19 16:35 Urine WBC 0-2 HPF (0-5) 03/25/19 16:35 Ur Epithelial Cells Few HPF (Negative) 03/25/19 16:35 Urine Crystals Negative HPF (Negative) 03/25/19 16:35 Urine Bacteria Negative HPF (Negative) 03/25/19 16:35 Urine Casts Negative LPF (Negative) 03/25/19 16:35 Urine Mucus Negative (Negative) 03/25/19 16:35 Urine Other Negative (Negative) 10/06/19 16:35 Ur Culture Indicated? No 03/25/19 16:35 Urine Glucose Negative mg/dL (Negative) 03/25/19 16:35 Digoxin 0.83 ng/mL (0.90-2.00) L 03/26/19 06:28
[2019-03-26 18:23] LABS: T3, Total 43 ng/dl (97-169)
[2019-03-26] MEDS: Warfarin 4 MG TAB 8 MG PO (21:43)
[2019-03-27] VITALS (17 sets, daily range): BP systolic 90–111; BP diastolic 50–72; PULSE 62–78; RESP 1–20; TEMP 36–36.9; O2SAT 89–94
[2019-03-27] MEDS: methylPREDNISolone SUCC 125 MG VIAL 80 MG IVP (03:45)
[2019-03-27] MEDS: Normal Saline Flush 10 ML SYR IVP ×2 (03:46→15:50)
[2019-03-27 06:51] LABS: Abs Immature Grans 0.01 k/cumm (0.0-0.09); Absolute Monocyte Count 0.36 k/cumm (0.11-0.7); Absolute Neutrophil Count 4.41 k/cumm (1.2-6.7); HCT 34.6 % (36.0-46.0); HGB 11.6 g/dL (12.0-15.5); Immature Grans % 0.2; Lymphocytes % 9.5; Mean Corp. HGB Concentration 33.5 g/dL (32.0-36.0); Mean Corpuscular Hemoglobin 31.4 pg (27.0-33.0); Mean Corpuscular Volume 93.5 fL (80-95); Mean Platelet Volume 11.3 fL (8.0-11.0); Monocytes % 6.8; Neutrophils % 83.5; Platelet Count 105 x1000/uL (130-400); RBC Distribution Width 16.2 % (11.7-14.6); White Blood Cell Count 5.28 k/cumm (4.4-10.8)
[2019-03-27] MEDS: Albuterol/Ipratropium 3 ML UPD VIAL UPD ×4 (06:57→23:51)
[2019-03-27 07:02] LABS: Anion Gap 7.2 mmol/L (3-11); BUN 22 mg/dL (7-18); CO2 28.8 mmol/L (21.0-32.0); CREATININE 1.06 mg/dL (0.55-1.02); Calcium 9.8 mg/dL (8.5-10.1); Chloride 104 mmol/L (98-107); Estimated GFR 55.81 (mL/min/1.73m2); Glucose 164 mg/dL (70-100); INR 3.9 (0.9-1.1); Magnesium 1.7 mg/dL (1.8-2.4); Potassium 4.1 mmol/L (3.5-5.1); Prothrombin Time 37.5 sec (9.3-11.0); Sodium 140 mmol/L (136-145)
[2019-03-27 07:20] LABS: Procalcitonin < 0.1 ng/mL
[2019-03-27] MEDS: Budesonide/Formoterol 160/4.5 6 GM 60 PUFF INH IH ×2 (07:24→20:15)
[2019-03-27] MEDS: Levothyroxine 100 MCG TAB 200 MCG PO (07:26)
[2019-03-27] MEDS: Digoxin 0.125 MG TAB 0.25 MG PO (07:58)
[2019-03-27] MEDS: Sertraline 50 MG TAB 100 MG PO (07:58)
[2019-03-27] MEDS: Gabapentin 100 MG CAP PO ×3 (07:58→20:15)
[2019-03-27] MEDS: DOXYCYCLINE 100 MG in Normal Saline 100 ML IVPB ×2 (07:59→20:50)
[2019-03-27] MEDS: Lactobacillus Acidophilus CAP 1 CAP PO (07:59)
--- NOTE | 2019-03-27 08:00 | DI.US_ITS ---
EXAM: US THYROID CLINICAL HISTORY: hyperparathyroidism. TECHNIQUE: Ultrasound performed using standard protocol. COMPARISON: No exams were available for comparison FINDINGS: The right lobe measures 4.7 x 1.3 x 1 cm. The left lobe measures 3.6 x 1.3 x 1 cm. There is a 4 mi llimeter hypoechoic nodule in the mid to lower left lobe of the thyroid. Lateral and inferior to the left lobe of the thyroid, there is an additional hypoechoic nodule measuring 6 millimeters. This co uld represent an additional incidental thyroid nodule or could represent a small parathyroid mass. IMPRESSION: Heterogeneous thyroid gland. Question of 6 millimeter parathyroid mass versus left thyroid nodule.
[2019-03-27] MEDS: MAGNESIUM SULFATE 2 GM/50 ML BAG IVPB (09:52)
--- NOTE | 2019-03-27 12:37 | PGE_ITS ---
Date of Service Date of service: 03/27/19 Time of Service: 12:37 Assessment and Plan Assessment and plan (1) COPD exacerbation: Status: Acute Assessment and plan: COPD/asthma exacerbation. Improving, but not ready for discharge. Continue empiric antibiotics, scheduled/prn nebs, start to taper steroids, continue symbicort. We spoke at length about smoking cessation. (2) CAP (community acquired pneumonia): Status: Acute Assessment and plan: As above (3) Elevated parathyroid hormone: Status: Acute Assessment and plan: Obtain thyroid US and refer to [facility] endocrinology (4) Atrial fibrillation: Status: Chronic Assessment and plan: S/p pacer - 100% VPaced on tele. Rate controlled. D/c tele. Hold coumadin and lovenox today. INR supratherapeutic. Qualifiers: Atrial fibrillation type: paroxysmal Qualified Code(s): I48.0 - Paroxysmal atrial fibrillation (5) Hypothyroidism: Status: Chronic Assessment and plan: TSH quite elevated, which is chronic for this patient, but she fell out of follow up with endocrine. s/p radioiodine ablation at the age of 17 at [facility], but wants to go to [facility] for follow up. Consulting endocrine. Qualifiers: Hypothyroidism type: acquired Qualified Code(s): E03.9 - Hypothyroidism, unspecified (6) History of mitral valve replacement with mechanical valve: Status: Acute Assessment and plan: INR supratherapeutic today - d/c lovenox, hold coumadin. (7) DVT prophylaxis: Status: Acute Assessment and plan: as above - INR supratherapeutic today (8) Discharge planning issues: Status: Acute Assessment and plan: Full code. Will need outpatient endocrinology follow up with [facility]. Subjective Subjective Interval history since last seen: Ms Dumont states she feels better today, but she is not back to baseline. Still short of breath and wheezing. Denies dizziness, chest pain, nausea/vomiting. We spoke about smoking - she states she hasn't smoked tobacco products in at least 2-3 months, but she does smoke marijuana. I explained to her that this could also affect her lungs negatively and she will consider that. We spoke about not smoking while wearing oxygen - she states she never wears the oxygen when she smokes, she takes it off. Exam Narrative Exam Narrative: General: very pleasant middle-aged female, A&Ox3, sitting in bed, hoarse voice, no tachypnea/dyspnea noted. HEENT: EOMI, MMM Heart: RRR, +AYUSH (of mechanical valve) Lungs: wheezing on expiration B, about the same as yesterday GI: abdomen is soft, nontender, nondistended Extremities: no e/c/c BLE's Objective Objective Clinical Data: Abnormal lab results 03/27/19 03/27/19 03/27/19 Range/Units 06:20 06:20 06:20 RBC 3.70 L (4.00-5.20) m/cumm Hgb 11.6 L (12.0-15.5) g/dL Hct 34.6 L (36.0-46.0) % RDW 16.2 H (11.7-14.6) % Plt Count 105 L (130-400) x1000/uL MPV 11.3 H (8.0-11.0) fL Absolute Lymphocytes 0.50 L (1.2-3.4) k/cumm PT 37.5 H D (9.3-11.0) sec INR 3.9 H D (0.9-1.1) BUN 22 H (7-18) mg/dL Creatinine 1.06 H (0.55-1.02) mg/dL Glucose 164 H (70-100) mg/dL Magnesium 1.7 L (1.8-2.4) mg/dL Vital Signs Temperature 36.3 C L 03/27/19 11:00 Temperature Source Tympanic 03/27/19 11:00 Pulse 63 03/27/19 12:32 Pulse Rhythm Regular 03/27/19 03:10 Pulse 61 03/25/19 17:15 Respiratory Rate 18 03/27/19 12:32 Respiratory Effort Short of Breath 03/27/19 03:10 Respiratory Depth Shallow 03/27/19 03:10 Respiratory Pattern Normal 03/27/19 03:10 Blood Pressure 111/72 03/27/19 11:00 Blood Pressure Mean 60 03/25/19 17:15 Pulse Oximetry 93 L 03/27/19 12:32 Oxygen Delivery Method Nasal Cannula 03/27/19 12:32 Oxygen Flow Rate 3.5 03/27/19 12:32 Pain Level 0 03/27/19 11:00 Comment 03/27/19 03:50 Intake & Output 03/26/19 03/27/19 03/27/19 23:59 11:59 23:59 Intake Total 480 / 1230 Balance 480 / 1130 Weight 66.7 kg Intake: IV 240 / 260 Oral 240 / 970 Other: Urine Appearance Clear Clear Comment pt voiding independently. Voiding Methods Toilet Laboratory Results WBC 5.28 k/cumm (4.4-10.8) 03/27/19 06:20 RBC 3.70 m/cumm (4.00-5.20) L 03/27/19 06:20 Hgb 11.6 g/dL (12.0-15.5) L 03/27/19 06:20 Hct 34.6 % (36.0-46.0) L 03/27/19 06:20 MCV 93.5 fL (80-95) 03/27/19 06:20 MCH 31.4 pg (27.0-33.0) 03/27/19 06:20 MCHC 33.5 g/dL (32.0-36.0) 03/27/19 06:20 RDW 16.2 % (11.7-14.6) H 03/27/19 06:20 Plt Count 105 x1000/uL (130-400) L 03/27/19 06:20 MPV 11.3 fL (8.0-11.0) H 03/27/19 06:20 Immature Gran % 0.2 03/27/19 06:20 Neutrophils % 83.5 03/27/19 06:20 Lymphocytes % 9.5 03/27/19 06:20 Monocytes % 6.8 03/27/19 06:20 Eosinophils % 0.0 03/27/19 06:20 Basophils % 0.0 03/27/19 06:20 Absolute Neutrophils 4.41 k/cumm (1.2-6.7) 03/27/19 06:20 Absolute Lymphocytes 0.50 k/cumm (1.2-3.4) L 03/27/19 06:20 Absolute Monocytes 0.36 k/cumm (0.11-0.7) 03/27/19 06:20 Absolute Eosinophils 0.00 k/cumm (0.0-0.7) 03/27/19 06:20 Absolute Basophils 0.00 k/cumm (0.0-0.2) 03/27/19 06:20 Differential Comment Plt morph reviewed 03/25/19 17:00 RBC Morphology Normal 03/25/19 17:00 PT 37.5 sec (9.3-11.0) H D 03/27/19 06:20 INR 3.9 (0.9-1.1) H D 03/27/19 06:20 APTT 34.0 sec (21.0-31.4) H 03/25/19 17:00 Sodium 140 mmol/L (136-145) 03/27/19 06:20 Potassium 4.1 mmol/L (3.5-5.1) 03/27/19 06:20 Chloride 104 mmol/L (98-107) 03/27/19 06:20 Carbon Dioxide 28.8 mmol/L (21.0-32.0) 03/27/19 06:20 Anion Gap 7.2 mmol/L (3-11) 03/27/19 06:20 BUN 22 mg/dL (7-18) H 03/27/19 06:20 Creatinine 1.06 mg/dL (0.55-1.02) H 03/27/19 06:20 Estimated GFR/1.73 m2 55.81 (mL/min/1.73m2) 03/27/19 06:20 Glucose 164 mg/dL (70-100) H 03/27/19 06:20 Lactate 0.8 mmol/L (0.6-1.4) 03/25/19 17:00 Calcium 9.8 mg/dL (8.5-10.1) 03/27/19 06:20 Magnesium 1.7 mg/dL (1.8-2.4) L 03/27/19 06:20 Total Bilirubin 2.7 mg/dL (0.2-1.0) H 03/26/19 06:28 AST 25 U/L (15-37) 03/26/19 06:28 ALT 23 U/L (14-59) 03/26/19 06:28 Alkaline Phosphatase 123 U/L (46-116) H 03/26/19 06:28 Total Protein 7.9 g/dL (6.4-8.2) 03/26/19 06:28 Albumin 3.8 g/dL (3.4-5.0) 03/26/19 06:28 Lipase 87 U/L (73-393) 03/25/19 17:00 Procalcitonin < 0.1 ng/mL 03/27/19 06:20 TSH 81.83 uIU/mL (0.36-3.74) H 03/25/19 17:00 Free T4 0.66 ng/dL (0.76-1.46) L 03/25/19 17:00 Urine Color Yellow (Yellow) 03/25/19 16:35 Urine Clarity Clear (Clear) 03/25/19 16:35 Urine pH 5.0 (5-8) 03/25/19 16:35 Ur Specific [place] 1.010 (1.005-1.025) 03/25/19 16:35 Urine Protein Negative mg/dL (Negative) 03/25/19 16:35 Urine Ketones Negative mg/dL (Negative) 03/25/19 16:35 Urine Blood Trace-intact (Negative) H 03/25/19 16:35 Urine Nitrite Negative (Negative) 03/25/19 16:35 Urine Bilirubin Negative (Negative) 03/25/19 16:35 Urine Urobilinogen 1.0 EU/dL (Up TO 0.2) H 03/25/19 16:35 Ur Leukocyte Esterase Negative (Negative) 03/25/19 16:35 Urine RBC 0-2 (0-2) 03/25/19 16:35 Urine WBC 0-2 HPF (0-5) 03/25/19 16:35 Ur Epithelial Cells Few HPF (Negative) 03/25/19 16:35 Urine Crystals Negative HPF (Negative) 03/25/19 16:35 Urine Bacteria Negative HPF (Negative) 03/25/19 16:35 Urine Casts Negative LPF (Negative) 03/25/19 16:35 Urine Mucus Negative (Negative) 03/25/19 16:35 Urine Other Negative (Negative) 03/25/19 16:35 Ur Culture Indicated? No 03/25/19 16:35 Urine Glucose Negative mg/dL (Negative) 03/25/19 16:35 Digoxin 0.83 ng/mL (0.90-2.00) L 03/26/19 06:28
--- NOTE | 2019-03-27 14:49 | CMPROGNOTE_ITS ---
- If Service Date Differs Date of service: 03/27/19 Time of Service: 14:49 Care Management Progress Note S/O: Marissa was sitting up in bed during CM visit. She was pleasant and cooperative and stated that she continues to feel better. Marissa had asked about getting a new updraft machine yesterday. followed up with Respiratory Therapy and she will be provided with a new machine at discharge. A: Marissa is a 48 year old woman admitted to [facility] on 03/25/19 with pneumonia and COPD exacerbation P: Marissa will likely be discharged home with no new services. She will continue to use home oxygen. She will need to follow up with her PCP and possibly Pulmonology.She will transport home via private vehicle with her boyfriend or roommate.
[2019-03-27] MEDS: methylPREDNISolone SUCC 125 MG VIAL 60 MG IVP (15:50)
[2019-03-27] MEDS: Furosemide 40 MG TAB PO (16:27)
[2019-03-27] MEDS: Insulin Aspart 300 UNITS/3 ML PEN SC ×2 (16:44→22:14)
[2019-03-27] MEDS: cefTRIAXone 1 GM/50 ML BAG IVPB (18:18)
[2019-03-27] MEDS: Sodium Chloride-Nasal SPRAY-ADULT 44 ML BTL NS (20:50)
[2019-03-28] VITALS (11 sets, daily range): BP systolic 98–110; BP diastolic 51–69; PULSE 62–70; RESP 1–20; TEMP 35.8–36.8; O2SAT 89–96
[2019-03-28] MEDS: methylPREDNISolone SUCC 125 MG VIAL 60 MG IVP ×2 (05:00→16:56)
[2019-03-28] MEDS: Levothyroxine 100 MCG TAB 200 MCG PO (05:01)
[2019-03-28] MEDS: Normal Saline Flush 10 ML SYR IVP ×3 (05:01→16:57)
[2019-03-28] MEDS: Albuterol/Ipratropium 3 ML UPD VIAL UPD ×3 (05:01→18:37)
[2019-03-28 07:14] LABS: Abs Immature Grans 0.02 k/cumm (0.0-0.09); Absolute Lymphocyte Count 0.53 k/cumm (1.2-3.4); Absolute Monocyte Count 0.49 k/cumm (0.11-0.7); Absolute Neutrophil Count 4.22 k/cumm (1.2-6.7); HCT 34.6 % (36.0-46.0); HGB 11.6 g/dL (12.0-15.5); Immature Grans % 0.4; Lymphocytes % 10.1; Mean Corp. HGB Concentration 33.5 g/dL (32.0-36.0); Mean Corpuscular Hemoglobin 31.4 pg (27.0-33.0); Mean Corpuscular Volume 93.8 fL (80-95); Mean Platelet Volume 10.6 fL (8.0-11.0); Monocytes % 9.3; Neutrophils % 80.2; Platelet Count 122 x1000/uL (130-400); RBC 3.69 m/cumm (4.00-5.20); RBC Distribution Width 16.5 % (11.7-14.6); White Blood Cell Count 5.26 k/cumm (4.4-10.8)
[2019-03-28 07:25] LABS: BUN 27 mg/dL (7-18); CREATININE 0.97 mg/dL (0.55-1.02); Calcium 9.5 mg/dL (8.5-10.1); Chloride 105 mmol/L (98-107); Glucose 100 mg/dL (70-100); Magnesium 2.1 mg/dL (1.8-2.4); Potassium 3.8 mmol/L (3.5-5.1); Sodium 141 mmol/L (136-145)
[2019-03-28] MEDS: Budesonide/Formoterol 160/4.5 6 GM 60 PUFF INH IH ×2 (07:32→21:10)
[2019-03-28 07:45] LABS: Prothrombin Time 62.8 sec (9.3-11.0)
[2019-03-28 08:02] LABS: INR 6.6 (0.9-1.1)
[2019-03-28] MEDS: Sertraline 50 MG TAB 100 MG PO (08:49)
[2019-03-28] MEDS: Gabapentin 100 MG CAP PO ×3 (08:53→21:12)
[2019-03-28] MEDS: Digoxin 0.125 MG TAB 0.25 MG PO (08:53)
[2019-03-28] MEDS: Lactobacillus Acidophilus CAP 1 CAP PO (08:53)
[2019-03-28] MEDS: DOXYCYCLINE 100 MG in Normal Saline 100 ML IVPB ×2 (08:54→21:10)
[2019-03-28] MEDS: Furosemide 40 MG TAB PO (09:59)
[2019-03-28] MEDS: Spironolactone 25 MG TAB PO (10:42)
[2019-03-28] MEDS: Sodium Chloride-Nasal SPRAY-ADULT 44 ML BTL NS (10:45)
--- NOTE | 2019-03-28 11:15 | DI.RAD_ITS ---
EXAM: XR CHEST 2V PA LATERAL INDICATION: follow up pneumonia. COMPARISON: XR CHEST 2V PA LATERAL from 03/25/2019 TECHNIQUE: 2D digital imaging was performed. FINDINGS: When compared with the previous images of 03/25, there is largely complete clearing of the lungs. Ther e is no pleural effusion. Heart remains top limits of normal in size in this patient who is status p ost aortic valve replacement.
--- NOTE | 2019-03-28 14:52 | CMPROGNOTE_ITS ---
- If Service Date Differs Date of service: 03/28/19 Time of Service: 14:52 Care Management Progress Note S/O: Marissa was sitting up in bed when CM came to visit. She was pleasant and cooperative and stated that she continues to feel better. Marissa has received her new updraft machine and said she is pleased because it is much smaller than her old one. She voiced some concern about a possible late discharge. Apparently one of the LNAs told her that patients sometimes go home late in the evening, after 8 pm at times. Since her mother will be transporting her, she has concerns about night driving. She was reassured that she would not have to leave that late in the day. Marissa also shared that since coming to the hospital, she has not been able to get much sleep. She says she anticipates sleeping for at least 3 days when she leaves. A: Marissa is a 48 year old woman admitted to [facility] on 03/25/19 with pneumonia and COPD exacerbation P: Marissa will likely be discharged home with no new services. She will continue to use home oxygen. She will need to follow up with her PCP . She will transport home via private vehicle with her mother.
--- NOTE | 2019-03-28 16:53 | W.PM.PROGNOT ---
Date of Service Date of service: 03/28/19 Time of Service: 16:53 Assessment and Plan Assessment and plan (1) COPD exacerbation: Status: Acute Assessment and plan: COPD/asthma exacerbation. Much better. CXR better. Convert to PO steroids today. Change steroids to PO, finish antibiotics tomorrow (would be day 5), continue nebs, continue symbicort. We spoke at length about smoking cessation. (2) CAP (community acquired pneumonia): Status: Resolved Assessment and plan: As above (3) Elevated parathyroid hormone: Status: Acute Assessment and plan: US thyroid: Heterogeneous thyroid gland. Question of 6 millimeter parathyroid mass versus left thyroid nodule. Could benefit from parathyroidectomy, potentially. Refer to [facility] [place] endocrine and surgery. (4) Atrial fibrillation: Status: Chronic Assessment and plan: S/p pacer - 100% VPaced. INR supratherapeutic - hold coumadin. Qualifiers: Atrial fibrillation type: paroxysmal Qualified Code(s): I48.0 - Paroxysmal atrial fibrillation (5) Hypothyroidism: Status: Chronic Assessment and plan: TSH 81.83 03/25/19, which is actually better than 116.1 on 03/22/19, Total T3 43, Free T3 2.0 Referral to [facility] [place] endocrine. Qualifiers: Hypothyroidism type: acquired Qualified Code(s): E03.9 - Hypothyroidism, unspecified (6) History of mitral valve replacement with mechanical valve: Status: Acute Assessment and plan: INR supratherapeutic today - hold coumadin. No need for vitamin K - not bleeding. Verified with 2018 JOHN guidelines. (7) DVT prophylaxis: Status: Acute Assessment and plan: as above - INR supratherapeutic today (8) Discharge planning issues: Status: Acute Assessment and plan: Full code. Will need outpatient endocrinology follow up with [facility] [place]. Planned to be discharged home tomorrow. Subjective Subjective Interval history since last seen: Patient states she feels better today - breathing is nearly back to baseline. Still reports a cough - productive, but she does not know what color the sputum is, because she can't stand spitting it out. Denies chest pain, dizziness, nausea, vomiting. Exam Narrative Exam Narrative: General: very pleasant middle-aged female, A&Ox3, sitting in bed, hoarse voice, no tachypnea/dyspnea noted. HEENT: EOMI, MMM Heart: RRR, +AYSUH (of mechanical valve) Lungs: CTAB - rhonchi completely resolved GI: abdomen is soft, nontender, nondistended Extremities: no e/c/c BLE's Objective Objective Clinical Data: Abnormal lab results 03/28/19 03/28/19 03/28/19 Range/Units 06:20 06:20 06:20 RBC 3.69 L (4.00-5.20) m/cumm Hgb 11.6 L (12.0-15.5) g/dL Hct 34.6 L (36.0-46.0) % RDW 16.5 H (11.7-14.6) % Plt Count 122 L (130-400) x1000/uL Absolute Lymphocytes 0.53 L (1.2-3.4) k/cumm PT 62.8 H (9.3-11.0) sec INR 6.6 H* D (0.9-1.1) BUN 27 H (7-18) mg/dL Vital Signs Temperature 36.6 C 03/28/19 16:21 Temperature Source Temporal Artery Scan 03/28/19 16:21 Pulse 65 03/28/19 16:21 Pulse Rhythm Regular 03/28/19 08:15 Pulse 61 03/25/19 17:15 Respiratory Rate 18 03/28/19 16:21 Respiratory Effort Non-Labored 03/28/19 08:15 Respiratory Depth Normal 03/28/19 08:15 Respiratory Pattern Normal 03/28/19 08:15 Blood Pressure 103/60 03/28/19 16:21 Blood Pressure Mean 60 03/25/19 17:15 Pulse Oximetry 93 L 03/28/19 16:21 Oxygen Delivery Method Nasal Cannula 03/28/19 16:21 Oxygen Flow Rate 3.5 03/28/19 16:21 Pain Level 0 03/28/19 16:21 Comment 03/28/19 10:46 Intake & Output 03/27/19 03/28/19 03/28/19 23:59 11:59 23:59 Intake Total 920 / 1500 760 / 1300 540 / 1300 Output Total 400 / 400 650 / 1150 500 / 1150 Balance 520 / 1100 110 / 150 40 / 150 Weight 66.5 kg Intake: IV 130 / 230 Oral 790 / 1270 760 / 1300 540 / 1300 Output: Urine 400 / 400 650 / 1150 500 / 1150 Other: Urine Color Light Kinsey Yellow Yellow Urine Appearance Clear Clear Clear Urine Odor Normal Normal Normal Comment pt reports voiding this shift x 3 approx 100-200 ml each time. Voiding Methods Toilet Toilet Toilet Laboratory Results WBC 5.26 k/cumm (4.4-10.8) 03/28/19 06:20 RBC 3.69 m/cumm (4.00-5.20) L 03/28/19 06:20 Hgb 11.6 g/dL (12.0-15.5) L 03/28/19 06:20 Hct 34.6 % (36.0-46.0) L 03/28/19 06:20 MCV 93.8 fL (80-95) 03/28/19 06:20 MCH 31.4 pg (27.0-33.0) 03/28/19 06:20 MCHC 33.5 g/dL (32.0-36.0) 03/28/19 06:20 RDW 16.5 % (11.7-14.6) H 03/28/19 06:20 Plt Count 122 x1000/uL (130-400) L 03/28/19 06:20 MPV 10.6 fL (8.0-11.0) 03/28/19 06:20 Immature Gran % 0.4 03/28/19 06:20 Neutrophils % 80.2 03/28/19 06:20 Lymphocytes % 10.1 03/28/19 06:20 Monocytes % 9.3 03/28/19 06:20 Eosinophils % 0.0 03/28/19 06:20 Basophils % 0.0 03/28/19 06:20 Absolute Neutrophils 4.22 k/cumm (1.2-6.7) 03/28/19 06:20 Absolute Lymphocytes 0.53 k/cumm (1.2-3.4) L 03/28/19 06:20 Absolute Monocytes 0.49 k/cumm (0.11-0.7) 03/28/19 06:20 Absolute Eosinophils 0.00 k/cumm (0.0-0.7) 03/28/19 06:20 Absolute Basophils 0.00 k/cumm (0.0-0.2) 03/28/19 06:20 Differential Comment Plt morph reviewed 03/25/19 17:00 RBC Morphology Normal 03/25/19 17:00 PT 62.8 sec (9.3-11.0) H 03/28/19 06:20 INR 6.6 (0.9-1.1) H* D 03/28/19 06:20 APTT 34.0 sec (21.0-31.4) H 03/25/19 17:00 Sodium 141 mmol/L (136-145) 03/28/19 06:20 Potassium 3.8 mmol/L (3.5-5.1) 03/28/19 06:20 Chloride 105 mmol/L (98-107) 03/28/19 06:20 Carbon Dioxide 29.0 mmol/L (21.0-32.0) 03/28/19 06:20 Anion Gap 7.0 mmol/L (3-11) 03/28/19 06:20 BUN 27 mg/dL (7-18) H 03/28/19 06:20 Creatinine 0.97 mg/dL (0.55-1.02) 03/28/19 06:20 Estimated GFR/1.73 m2 >= 60.00 (mL/min/1.73m2) 03/28/19 06:20 Glucose 100 mg/dL (70-100) D 03/28/19 06:20 Lactate 0.8 mmol/L (0.6-1.4) 03/25/19 17:00 Calcium 9.5 mg/dL (8.5-10.1) 03/28/19 06:20 Magnesium 2.1 mg/dL (1.8-2.4) 03/28/19 06:20 Total Bilirubin 2.7 mg/dL (0.2-1.0) H 03/26/19 06:28 AST 25 U/L (15-37) 03/26/19 06:28 ALT 23 U/L (14-59) 03/26/19 06:28 Alkaline Phosphatase 123 U/L (46-116) H 03/26/19 06:28 Total Protein 7.9 g/dL (6.4-8.2) 03/26/19 06:28 Albumin 3.8 g/dL (3.4-5.0) 03/26/19 06:28 Lipase 87 U/L (73-393) 03/25/19 17:00 Procalcitonin < 0.1 ng/mL 03/27/19 06:20 TSH 81.83 uIU/mL (0.36-3.74) H 03/25/19 17:00 Free T4 0.66 ng/dL (0.76-1.46) L 03/25/19 17:00 Free T3 pg/mL 2.0 pg/mL (2.8-5.3) L 03/25/19 17:00 Total T3 43 ng/dL (97-169) L 03/25/19 17:00 Urine Color Yellow (Yellow) 03/25/19 16:35 Urine Clarity Clear (Clear) 03/25/19 16:35 Urine pH 5.0 (5-8) 03/25/19 16:35 Ur Specific [place] 1.010 (1.005-1.025) 03/25/19 16:35 Urine Protein Negative mg/dL (Negative) 03/25/19 16:35 Urine Ketones Negative mg/dL (Negative) 03/25/19 16:35 Urine Blood Trace-intact (Negative) H 03/25/19 16:35 Urine Nitrite Negative (Negative) 03/25/19 16:35 Urine Bilirubin Negative (Negative) 03/25/19 16:35 Urine Urobilinogen 1.0 EU/dL (Up TO 0.2) H 03/25/19 16:35 Ur Leukocyte Esterase Negative (Negative) 03/25/19 16:35 Urine RBC 0-2 (0-2) 03/25/19 16:35 Urine WBC 0-2 HPF (0-5) 03/25/19 16:35 Ur Epithelial Cells Few HPF (Negative) 03/25/19 16:35 Urine Crystals Negative HPF (Negative) 03/25/19 16:35 Urine Bacteria Negative HPF (Negative) 03/25/19 16:35 Urine Casts Negative LPF (Negative) 03/25/19 16:35 Urine Mucus Negative (Negative) 03/25/19 16:35 Urine Other Negative (Negative) 03/25/19 16:35 Ur Culture Indicated? No 03/25/19 16:35 Urine Glucose Negative mg/dL (Negative) 03/25/19 16:35 Digoxin 0.83 ng/mL (0.90-2.00) L 03/26/19 06:28 CXR: When compared with the previous images of 03/25, there is largely complete clearing of the lungs. There is no pleural effusion. Heart remains top limits of normal in size in this patient who is status post aortic valve replacement.
[2019-03-28] MEDS: cefTRIAXone 1 GM/50 ML BAG IVPB (19:53)
[2019-03-28] MEDS: Acetaminophen 325 MG TAB 650 MG PO (21:10)
[2019-03-28] MEDS: Insulin Aspart 300 UNITS/3 ML PEN SC (21:13)
[2019-03-29 00:17] VITALS: BP 96/57; PULSE 77; RESP 18; TEMP 36.6; O2SAT 92
[2019-03-29] MEDS: Albuterol/Ipratropium 3 ML UPD VIAL UPD ×2 (00:42→05:29)
[2019-03-29] MEDS: Levothyroxine 100 MCG TAB 200 MCG PO (05:29)
[2019-03-29 05:34] VITALS: BP 126/79; PULSE 62; RESP 20; TEMP 36.3; O2SAT 94
[2019-03-29 07:23] LABS: Abs Immature Grans 0.01 k/cumm (0.0-0.09); Absolute Lymphocyte Count 0.58 k/cumm (1.2-3.4); Absolute Monocyte Count 0.61 k/cumm (0.11-0.7); Absolute Neutrophil Count 3.67 k/cumm (1.2-6.7); HCT 36.1 % (36.0-46.0); HGB 12.1 g/dL (12.0-15.5); Immature Grans % 0.2; Lymphocytes % 11.9; Mean Corp. HGB Concentration 33.5 g/dL (32.0-36.0); Mean Corpuscular Hemoglobin 31.6 pg (27.0-33.0); Mean Corpuscular Volume 94.3 fL (80-95); Mean Platelet Volume 9.7 fL (8.0-11.0); Monocytes % 12.5; Neutrophils % 75.4; Platelet Count 143 x1000/uL (130-400); RBC 3.83 m/cumm (4.00-5.20); RBC Distribution Width 16.3 % (11.7-14.6); White Blood Cell Count 4.87 k/cumm (4.4-10.8)
[2019-03-29 07:25] LABS: Anion Gap 7.3 mmol/L (3-11); BUN 30 mg/dL (7-18); CO2 29.7 mmol/L (21.0-32.0); CREATININE 0.93 mg/dL (0.55-1.02); Calcium 9.6 mg/dL (8.5-10.1); Chloride 105 mmol/L (98-107); Glucose 89 mg/dL (70-100); Magnesium 1.9 mg/dL (1.8-2.4); Potassium 3.9 mmol/L (3.5-5.1); Sodium 142 mmol/L (136-145)
[2019-03-29] MEDS: Budesonide/Formoterol 160/4.5 6 GM 60 PUFF INH IH (07:37)
[2019-03-29 07:55] VITALS: BP 101/76; PULSE 79; RESP 18; TEMP 36.5; O2SAT 91
[2019-03-29 08:13] LABS: Prothrombin Time 39.9 sec (9.3-11.0)
[2019-03-29 08:29] LABS: INR 4.1 (0.9-1.1)
[2019-03-29] MEDS: Gabapentin 100 MG CAP PO ×2 (08:41→13:08)
[2019-03-29 08:42] VITALS: PULSE 79
[2019-03-29] MEDS: Sertraline 50 MG TAB 100 MG PO (08:42)
[2019-03-29] MEDS: Digoxin 0.125 MG TAB 0.25 MG PO (08:42)
[2019-03-29] MEDS: Lactobacillus Acidophilus CAP 1 CAP PO (08:43)
[2019-03-29] MEDS: Spironolactone 25 MG TAB PO (08:43)
[2019-03-29] MEDS: predniSONE 20 MG TAB 60 MG PO (08:44)
[2019-03-29] MEDS: DOXYCYCLINE 100 MG in Normal Saline 100 ML IVPB (08:44)
[2019-03-29] MEDS: Furosemide 40 MG TAB PO (08:44)
[2019-03-29] MEDS: Normal Saline Flush 10 ML SYR IVP ×2 (08:46→10:48)
[2019-03-29 10:44] VITALS: PULSE 78; RESP 20; O2SAT 88; O2SAT 93
--- NOTE | 2019-03-29 11:15 | DSE_ITS ---
Date of service: 03/29/19 Time of Service: 11:16 DS: Diagnosis Discharge Diagnosis (1) COPD exacerbation: Status: Acute (2) CAP (community acquired pneumonia): Status: Resolved (3) Elevated parathyroid hormone: Status: Acute (4) Atrial fibrillation: Status: Chronic (5) Hypothyroidism: Status: Chronic (6) History of mitral valve replacement with mechanical valve: Status: Acute (7) Hyperparathyroidism: Status: Acute Discharge Plan Disposition Patient Disposition: HOME Condition: Good Discharge Details Chief Complaint: Nausea/Vomit/Diar Reason For Visit: PNEUMONIA W/HYPOXEMIA, COPD EXACERBATION Admit Date/Time: 03/25/19 19:07 Admit Provider: Geovanni Workman Attending Provider: Geovanni Workman Primary Care Provider: Anna Rodriguez ED Provider: Flakito Frias [place] [facility] Course Hospital Course: Ms Dumont is a 48 year old female with PMHx of asthma, COPD, chronic hypoxic respiratory failure, as well as h/o congenital heart disease, mechanical mitral valve repair, on coumadin, sick sinus syndrome s/p pacer, hypothyroidism post radioiodine ablation, hyperparathyroidism, admitted to [facility] on 03/25/19 with acute exacerbation of COPD/asthma due to CAP. She was treated with IV rocephin/doxycycline empirically, as well as symbicort, IV solumedrol, scheduled and prn nebs with significant improvement of her symptoms. Her oxygen requirement is 3.5 L at rest and 4 L with activity on the day of discharge, which is near her baseline. She should seen endocrinology for her hypothyroidism with TSH of 88 as well as hyperparathryroidism with findings of a parathyroid mass vs thyroid nodule on ultrasound of the thyroid. A referral to [facility] [place] [place] endocrinology is being sent. The patient was advised not to smoke, including canabis products and verbalizes understanding. She is also being prescribed a nebulizer machine and treatments on discharge. She is medically stable for dis charge, having completed her antibiotics. She is to complete a short course of steroids. The care for patient as well as completion of her discharge paperwork on the day of discharge took 35 minutes. Home Meds and New Rx's Prescriptions: New albuterol sulfate 2.5 mg /3 mL (0.083 %) Solution For Nebulization 2.5 mg UPD Q2H PRN PRN (Reason: shortness of breath or wheezing) Qty: 180 RF: 0 prednisone 20 mg Tablet See Rx Instructions .ROUTE .COMPLEX Qty: 13 RF: 0 Continued gabapentin 100 mg capsule 100 mg PO TID RF: 0 Probiotic Gold Acidophilus 1 billion cell capsule 10 mg PO DAILY RF: 0 furosemide [Lasix] 40 MG tablet 40 mg PO DAILY RF: 0 sotalol [Betapace] 80 MG tablet 80 mg PO BID RF: 0 spironolactone 25 MG tablet 25 mg PO DAILY RF: 0 levothyroxine 125 MCG tablet 200 mcg PO DAILY RF: 0 digoxin [Lanoxin] 0.125 MG tablet 250 mcg PO DAILY RF: 0 fluticasone propion-salmeterol [Advair Diskus] 1 EACH blister with device 1 ea Inhalation DAILY RF: 0 ranitidine HCl [Zantac Maximum Strength] 150 MG tablet 150 mg PO BID RF: 0 albuterol sulfate [ProAir HFA] 200 PUFF HFA aerosol inhaler 2 puff Inhalation PRN RF: 0 lisinopril 10 MG tablet 10 mg DAILY RF: 0 sertraline 100 MG tablet 100 mg PO DAILY RF: 0 montelukast [Singulair] 10 MG tablet 10 mg PO DAILY PRNRF: 0 warfarin [Coumadin] 1 MG tablet 8 mg PO HS RF: 0 Spiriva with HandiHaler 18 MCG capsule, w/inhalation device 1 cap Inhalation DAILY RF: 0 Discontinued albuterol sulfate 3 ML solution for nebulization 3 ml NEB PRN RF: 0 No Action (DME) Oxygen Tank See Rx Instructions .ROUTE .MEDSUPPLY Qty: 1 RF: 0 Discharge Instructions Instructions: Prednisone (By mouth), COPD (Chronic Obstructive Pulmonary Disease) (DC) Additional Instructions: Finish your steroids as prescribed. Return to the hospital with any fever, bleeding, chest pain, or shortness of breath. Do not smoke. Follow up with your PCP in 1-2 days and with endocrinology as soon as possible. Follow up for outpatient PFT's. Follow up with pulmonology. Stand Alone Forms: Nursing Discharge Form Referrals: ENDOCRINOLOGY,[facility] [place] [place] [OTHER] - Fabian Vernon [ NON-[facility] STAFF PHYSICIAN] - 04/04/19 11:00 am Activity:: Activity as Tolerated Equipment/Supplies:: 3.5 L at rest, 4 L with activity; also, a nebulizer machine Diet:: Heart healthy carb consistent Discharge Orders Discharge Orders: Discharge Order (Routine); Ordered 03/29/19 Ordered By: Yuliana Nunez Other Ambulatory Orders: PFT Spirometry (Outpt) (ONCE) Location: None Selected Ordered By: Yuliana Nunez DS: Summary Status at Discharge Functional status at discharge: independent ambulation Overall status at discharge: patient is back to baseline Mental Status: mental status grossly normal Speech and Movement: speech and movement normal Mood: congruent mood Affect: normal affect Exam Narrative Exam Narrative: General: very pleasant middle-aged female, A&Ox3, sitting up in a chair, voice sounds perfect, no tachypnea/dyspnea noted. HEENT: EOMI, MMM Heart: RRR, +AYUSH (of mechanical valve) Lungs: CTAB - rhonchi completely resolved GI: abdomen is soft, nontender, nondistended Extremities: no e/c/c BLE's Psych Mental Status: mental status grossly normal Speech and Movement: speech and movement normal Mood: congruent mood Affect: normal affect DS: Data Vitals/I&O Vitals and I&O: Vital Signs Temperature 36.5 C 03/29/19 07:55 Temperature Source Tympanic 03/29/19 07:55 Pulse 79 03/29/19 08:42 Pulse Rhythm Regular 03/29/19 08:16 Pulse 61 03/25/19 17:15 Respiratory Rate 18 03/29/19 07:55 Respiratory Effort Non-Labored 03/29/19 08:16 Respiratory Depth Shallow 03/29/19 08:16 Respiratory Pattern Normal 03/29/19 05:21 Blood Pressure 101/76 03/29/19 07:55 Blood Pressure Mean 60 03/25/19 17:15 Pulse Oximetry 91 L 03/29/19 07:55 Oxygen Delivery Method Nasal Cannula 03/29/19 07:55 Oxygen Flow Rate 3.5 03/29/19 07:55 Pain Level 0 03/29/19 07:55 Comment 03/29/19 05:34 Intake & Output 03/28/19 03/28/19 03/29/19 11:59 23:59 11:59 Intake Total 860 / 1760 900 / 1760 Output Total 650 / 2200 1550 / 2200 600 / 600 Balance 210 / -440 -650 / -440 -600 / -600 Weight 66.5 kg Intake: IV 100 / 220 120 / 220 Oral 760 / 1540 780 / 1540 Output: Urine 650 / 2200 1550 / 2200 600 / 600 Other: Urine Color Yellow Yellow Yellow Urine Appearance Clear Clear Clear Urine Odor Normal Normal Normal Voiding Methods Toilet Toilet Toilet Data Completed and Pending Completed studies during hospitalization [Text1]: US thyroid: Heterogeneous thyroid gland. Question of 6 millimeter parathyroid mass versus left thyroid n odule. CXR 03/25/19: Findings consistent with acute pneumonitis. Incidental note is made of new lateral fractures when compared with the prior study dating back to 2017. There is an old right lateral rib fracture. The heart is top limits of normal in size to mildly enlarged. CXR 03/28/19: When compared with the previous images of 03/25, there is largely complete clearing of the lungs. There is no pleural effusion. Heart remains top limits of normal in size in this patient who is status post aortic valve replacement. Labs on day of discharge: Labs from last 24 hours 03/29/19 03/29/19 03/29/19 06:55 06:55 06:55 WBC 4.87 RBC 3.83 L Hgb 12.1 Hct 36.1 MCV 94.3 MCH 31.6 MCHC 33.5 RDW 16.3 H Plt Count 143 MPV 9.7 Immature Gran % 0.2 Neutrophils % 75.4 Lymphocytes % 11.9 Monocytes % 12.5 Eosinophils % 0.0 Basophils % 0.0 Absolute Neutrophils 3.67 Absolute Lymphocytes 0.58 L Absolute Monocytes 0.61 Absolute Eosinophils 0.00 Absolute Basophils 0.00 PT 39.9 H D INR 4.1 H D Sodium 142 Potassium 3.9 Chloride 105 Carbon Dioxide 29.7 Anion Gap 7.3 BUN 30 H Creatinine 0.93 Estimated GFR/1.73 m2 >= 60.00 Glucose 89 Calcium 9.6 Magnesium 1.9 Preliminary micro results at discharge 03/25/19 17:55 Blood Culture - Preliminary Blood NO GROWTH 72 HOURS [facility] Social History Smoking/Tobacco Use Status: Current-Occasional Tobacco Type: cigarettes Alcohol Intake: never Drug use: Socially Substance use type: marijuana Do you feel safe at home: Yes Do you feel safe in your relationship?: Yes
[2019-03-29 11:54] VITALS: BP 93/65; PULSE 71; RESP 18; TEMP 36.5; O2SAT 92
--- NOTE | 2019-03-29 13:44 | PDOC.CMDIS ---
- If Service Date Differs Date of service: 03/29/19 Time of Service: 13:44 LACE Index Scoring Tool - Questions: Length of Stay (in days): 4 - 6 Acuity (Admit via E.D.?): Yes Comorbidities: Chronic Pulmonary Disease E.D. Visits: 1 - Answers: Total Score: 10 Risk of Readmission: High Risk Care Management Discharge Reason for Hospitalization: Pneumonia Discharge Plan: Marissa will be discharged home today she states she is ready and wants to go home to be with her cats. She declines additional services and will resume her current services for oxygen. Her mom will transport her home at time of discharge. Patient/Family Education Needs: Discharge education, limitations and follow up plan of care. Services Needed at Discharge: DME Agency, Oxygen Therapy
[2019-03-30 18:20] VITALS: BP 93/65; PULSE 71; RESP 18; TEMP 36.5; O2SAT 92
== END 2019-03-29 13:32 | disposition home or self-care (01) | DRG 190 ==
LOC: ER 19:47 → MS 20:39
PROVIDERS: Admitting Provider Family Medicine; Emergency Provider Nurse Practitioner Family; PCP Nurse Practitioner Family; Visit Provider Internal Medicine
DX: J44.0 Chronic obstructive pulmonary disease with (acute) lower respiratory infection; J18.9 Pneumonia, unspecified organism; Q22.4 Congenital tricuspid stenosis; J44.1 Chronic obstructive pulmonary disease with (acute) exacerbation; R09.02 Hypoxemia; F17.210 Nicotine dependence, cigarettes, uncomplicated; K71.7 Toxic liver disease with fibrosis and cirrhosis of liver; T50.995A Adverse effect of other drugs, medicaments and biological substances, initial encounter; R79.1 Abnormal coagulation profile; T45.515A Adverse effect of anticoagulants, initial encounter; E21.3 Hyperparathyroidism, unspecified; N18.9 Chronic kidney disease, unspecified; D63.1 Anemia in chronic kidney disease; Z95.1 Presence of aortocoronary bypass graft; Z95.2 Presence of prosthetic heart valve; I48.0 Paroxysmal atrial fibrillation; Z79.01 Long term (current) use of anticoagulants; E89.0 Postprocedural hypothyroidism; F12.90 Cannabis use, unspecified, uncomplicated; Z23 Encounter for immunization
CPT/HCPCS: 36415; 80048; 80053; 83690; 84145; 85027; 87040; 87449; 94618; 94640; 96361; 96365; 96367; 96368; 99223; 99232; 99239; 99285; 71046; 76536; 80162; 81003; 81015; 83605; 83735; 84439; 84443; 84480; 84481; 85025; 85610; 85730; 87070; 87205; 99284; J0696; J1650; J2930; J7512; J7613; J7620

== ENCOUNTER 2019-04-16 13:41 | Outpatient (CLI) | payer MEDICARE, SELFPAY ==
[2019-04-16 14:45] LABS: Prothrombin Time 41.1 sec (9.3-11.0)
[2019-04-16 14:54] LABS: INR 4.2 (0.9-1.1)
== END 2019-04-16 14:01 ==
PROVIDERS: PCP Nurse Practitioner Family; Visit Provider Nurse Practitioner Family
DX: I48.92 Unspecified atrial flutter (principal); Z79.01 Long term (current) use of anticoagulants
CPT/HCPCS: 36415; 85610

== ENCOUNTER 2019-04-19 12:27 | Outpatient (CLI) | payer MEDICARE, MEDICAID, SELFPAY ==
[2019-04-19 14:26] LABS: Prothrombin Time 52.7 sec (9.3-11.0)
[2019-04-19 14:34] LABS: INR 5.5 (0.9-1.1)
== END 2019-04-19 12:47 ==
PROVIDERS: PCP Nurse Practitioner Family; Visit Provider Nurse Practitioner Family
DX: Z95.2 Presence of prosthetic heart valve (principal); I48.20 Chronic atrial fibrillation, unspecified; Z79.01 Long term (current) use of anticoagulants
CPT/HCPCS: 36415; 85610

== ENCOUNTER 2019-07-03 15:56 | Outpatient (CLI) | payer MEDICARE, SELFPAY ==
[2019-07-03 16:39] LABS: Abs Immature Grans 0.01 k/cumm (0.0-0.09); Absolute Basophil Count 0.06 k/cumm (0.0-0.2); Absolute Eosinophil Count 0.12 k/cumm (0.0-0.7); Absolute Lymphocyte Count 1.08 k/cumm (1.2-3.4); Absolute Monocyte Count 0.59 k/cumm (0.11-0.7); Absolute Neutrophil Count 3.85 k/cumm (1.2-6.7); Basophils % 1.1; Eosinophils % 2.1; HCT 43.1 % (36.0-46.0); HGB 14.6 g/dL (12.0-15.5); Immature Grans % 0.2 %; Lymphocytes % 18.9; Mean Corp. HGB Concentration 33.9 g/dL (32.0-36.0); Mean Corpuscular Hemoglobin 32.6 pg (27.0-33.0); Mean Corpuscular Volume 96.2 fL (80-95); Mean Platelet Volume 9.7 fL (8.0-11.0); Monocytes % 10.3; Neutrophils % 67.4; Platelet Count 166 x1000/uL (130-400); RBC 4.48 m/cumm (4.00-5.20); RBC Distribution Width 15.4 % (11.7-14.6); White Blood Cell Count 5.71 k/cumm (4.4-10.8)
[2019-07-03 17:43] LABS: ALT 14 U/L (14-59); AST 17 U/L (15-37); Albumin 5.2 g/dL (3.4-5.0); Alkaline Phosphatase 143 U/L (46-116); Anion Gap 10.7 mmol/L (3-11); BUN 32 mg/dL (7-18); Bilirubin, Total 0.9 mg/dL (0.2-1.0); CO2 30.3 mmol/L (21.0-32.0); CREATININE 1.23 mg/dL (0.55-1.02); Calcium 11.2 mg/dL (8.5-10.1); Chloride 98 mmol/L (98-107); Estimated GFR 47.01 (mL/min/1.73m2); Glucose 113 mg/dL (74-106); Potassium 4.1 mmol/L (3.5-5.1); Sodium 139 mmol/L (136-145); Total Protein 8.5 g/dL (6.4-8.2)
[2019-07-03 18:54] LABS: TSH (W/Ref FT4) 126.45 uIU/mL (0.36-3.74)
[2019-07-03 19:10] LABS: FREE T4 0.87 ng/dL (0.76-1.46)
== END 2019-07-03 16:16 ==
PROVIDERS: PCP Nurse Practitioner Family; Visit Provider Nurse Practitioner Family
DX: E03.9 Hypothyroidism, unspecified (principal); R73.03 Prediabetes; F32.9 Major depressive disorder, single episode, unspecified; K74.60 Unspecified cirrhosis of liver; R19.8 Other specified symptoms and signs involving the digestive system and abdomen
CPT/HCPCS: 36415; 80053; 84439; 84443; 85025

== ENCOUNTER → 2019-08-06 10:53 | Outpatient (BNVA) | payer MEDICARE, MEDICAID, SELFPAY | PROVIDERS: PCP Nurse Practitioner Family; Referring Provider Nurse Practitioner Family; Visit Provider Surgery | DX: R19.4 Change in bowel habit (principal); J44.9 Chronic obstructive pulmonary disease, unspecified; E03.9 Hypothyroidism, unspecified; Z87.891 Personal history of nicotine dependence; Z80.0 Family history of malignant neoplasm of digestive organs | CPT/HCPCS: 99213 ==

== ENCOUNTER 2019-08-15 01:16 | Outpatient (CLI) | payer MEDICARE, MEDICAID, SELFPAY ==
--- NOTE | 2019-08-15 | DI.CT_ITS ---
EXAM: CT HEAD WO CLINICAL HISTORY: SYNCOPE R55, MEMORY LOSS R41.3, ELEVATED PARATHYROID HORMONE R79.89,. TECHNIQUE: Imaging Protocol: Axial computed tomography images with coronal and sagittal reformatted images were created and reviewed COMPARISON: No exams were available for comparison FINDINGS: Ventricles and Extra axial spaces: Normal in size and morphology for the patient's age. Hemorrhage: None. Cerebral parenchyma: Normal. Midline shift: None. Brainstem/Cerebellum: Normal. Calvarium: Normal. Visualized Paranasal sinuses/Mastoids: Clear. IMPRESSION: Normal CT of the head. RADIATION DOSE DELIVERED: DATA REPOSITORY: All CT scans at this facility are submitted to the National Radiology Data Registry (NRDR) Dose Index Registry (DIR) with the [employer] (A[employer]). RADIATION OPTIMIZATION: All CT scans at this facility use at least one of these dose optimization te chniques: automated exposure control; mA and/or kV adjustment per patient size (includes targeted exa ms where dose is matched to clinical indication); or iterative reconstruction.
== END 2019-08-15 01:36 ==
PROVIDERS: PCP Nurse Practitioner Family; Visit Provider Nurse Practitioner Family
DX: R55 Syncope and collapse (principal); R41.3 Other amnesia; R79.89 Other specified abnormal findings of blood chemistry
CPT/HCPCS: 70450

== ENCOUNTER 2019-08-20 15:54 | Outpatient (REF) | payer MEDICARE, MEDICAID, SELFPAY ==
[2019-08-20 21:30] LABS: Abs Immature Grans 0.01 k/cumm (0.0-0.09); Absolute Basophil Count 0.04 k/cumm (0.0-0.2); Absolute Eosinophil Count 0.19 k/cumm (0.0-0.7); Absolute Lymphocyte Count 1.61 k/cumm (1.2-3.4); Absolute Monocyte Count 0.55 k/cumm (0.11-0.7); Absolute Neutrophil Count 3.57 k/cumm (1.2-6.7); Basophils % 0.7; Eosinophils % 3.2; HCT 40.5 % (36.0-46.0); HGB 13.5 g/dL (12.0-15.5); Immature Grans % 0.2 %; Mean Corp. HGB Concentration 33.3 g/dL (32.0-36.0); Mean Corpuscular Hemoglobin 32.7 pg (27.0-33.0); Mean Corpuscular Volume 98.1 fL (80-95); Mean Platelet Volume 10.5 fL (8.0-11.0); Monocytes % 9.2; Neutrophils % 59.7; Platelet Count 188 x1000/uL (130-400); RBC 4.13 m/cumm (4.00-5.20); RBC Distribution Width 14.6 % (11.7-14.6); White Blood Cell Count 5.97 k/cumm (4.4-10.8)
[2019-08-20 21:43] LABS: ALT 26 U/L (14-59); AST 21 U/L (15-37); Albumin 4.7 g/dL (3.4-5.0); Alkaline Phosphatase 115 U/L (46-116); Anion Gap 6.4 mmol/L (3-11); BUN 39 mg/dL (7-18); Bilirubin, Total 0.6 mg/dL (0.2-1.0); CO2 30.6 mmol/L (21.0-32.0); CREATININE 1.93 mg/dL (0.55-1.02); Calcium 10.6 mg/dL (8.5-10.1); Chloride 102 mmol/L (98-107); Estimated GFR 27.95 (mL/min/1.73m2); Glucose 83 mg/dL (74-106); Potassium 4.6 mmol/L (3.5-5.1); Sodium 139 mmol/L (136-145); Total Protein 7.7 g/dL (6.4-8.2)
[2019-08-21 02:06] LABS: Digoxin 1.36 ng/mL (0.90-2.00)
== END 2019-08-20 16:14 ==
LOC: NCHCN 15:54
PROVIDERS: PCP Nurse Practitioner Family; Visit Provider Nurse Practitioner Family
DX: R55 Syncope and collapse (principal); I48.20 Chronic atrial fibrillation, unspecified; R73.03 Prediabetes; G43.109 Migraine with aura, not intractable, without status migrainosus; E83.52 Hypercalcemia; R41.3 Other amnesia; R19.8 Other specified symptoms and signs involving the digestive system and abdomen; Z51.81 Encounter for therapeutic drug level monitoring
CPT/HCPCS: 80053; 80162; 85025

== ENCOUNTER 2019-08-28 13:20 | Outpatient (CLI) | payer MEDICARE, MEDICAID, SELFPAY ==
[2019-08-28 14:12] LABS: Prothrombin Time 14.4 sec (9.3-11.0)
[2019-08-28 14:13] LABS: INR 1.4 (0.9-1.1)
[2019-08-28 14:22] LABS: Anion Gap 7.9 mmol/L (3-11); BUN 13 mg/dL (7-18); CO2 31.1 mmol/L (21.0-32.0); CREATININE 1.09 mg/dL (0.55-1.02); Calcium 9.6 mg/dL (8.5-10.1); Chloride 104 mmol/L (98-107); Estimated GFR 54.04 (mL/min/1.73m2); Glucose 69 mg/dL (74-106); NT-proBNP 2555 pg/mL (<300); Potassium 3.6 mmol/L (3.5-5.1); Sodium 143 mmol/L (136-145)
[2019-08-29 12:25] LABS: AFP Tumor Marker 3.7 ng/mL (<8.1)
== END 2019-08-28 13:40 ==
PROVIDERS: PCP Nurse Practitioner Family; Visit Provider Nurse Practitioner Family
DX: I48.92 Unspecified atrial flutter (principal); Z79.01 Long term (current) use of anticoagulants; I50.23 Acute on chronic systolic (congestive) heart failure; Z95.2 Presence of prosthetic heart valve; R97.8 Other abnormal tumor markers; R18.8 Other ascites; R60.1 Generalized edema
CPT/HCPCS: 36415; 80048; 82105; 83880; 85610

== ENCOUNTER 2019-10-25 11:53 | Outpatient (CLI) | payer MEDICARE, MEDICAID, SELFPAY ==
[2019-10-25 17:27] LABS: TSH 133.81 uIU/mL (0.36-3.74)
[2019-10-25 17:28] LABS: FREE T4 0.56 ng/dL (0.76-1.46)
== END 2019-10-25 12:13 ==
PROVIDERS: PCP Nurse Practitioner Family; Visit Provider Student in an Organized Health Care Education/Training Program
DX: E03.9 Hypothyroidism, unspecified (principal)
CPT/HCPCS: 36415; 84439; 84443

== ENCOUNTER 2019-11-05 13:02 | Outpatient (REF) | payer MEDICARE, MEDICAID, SELFPAY ==
[2019-11-06 08:54] LABS: Calcium Urine 4.9 mg/dL (See Note); Calcium Urine 24 hr 118 mg/24hrs (100-300); Timed Urine Volume 2400 mL
== END 2019-11-05 13:22 ==
LOC: LBN 13:02
PROVIDERS: PCP Nurse Practitioner Family; Visit Provider Student in an Organized Health Care Education/Training Program
DX: E03.9 Hypothyroidism, unspecified (principal)
CPT/HCPCS: 81050; 82340

== ENCOUNTER 2019-11-09 04:04 | Outpatient (CLI) | payer MEDICARE, MEDICAID, SELFPAY ==
[2019-11-09 15:41] LABS: INR 6.8 (0.9-1.1)
[2019-11-09 16:05] LABS: Anion Gap 6.9 mmol/L (3-11); BUN 15 mg/dL (7-18); CO2 30.1 mmol/L (21.0-32.0); Calcium 10.1 mg/dL (8.5-10.1); Chloride 102 mmol/L (98-107); Estimated GFR 48.15 (mL/min/1.73m2); GGT 80 U/L (5-55); Glucose 83 mg/dL (74-106); Potassium 3.9 mmol/L (3.5-5.1); Sodium 139 mmol/L (136-145)
[2019-11-12 07:32] LABS: Vitamin D 25 Total 17.7 ng/ml (30-100)
[2019-11-12 11:29] LABS: IgG 936 mg/dL (610-1,616)
[2019-11-13 23:02] LABS: Cystatin C, S 1.07 mg/L; eGFR by Cystatin C 70 mL/min/BSA (>60)
[2019-11-14 10:36] LABS: ALT 10 U/L (7-45); ActiTest Grade A0; ActiTest Interpretation no activity; ActiTest Score 0.04; Alpha-2-Macroglobulin 290 mg/dL (100 - 280); Apoliprotein A1 167 mg/dL (>=140); Bilirubin, Total 0.5 mg/dL (<=1.2); FibroTest Interpretation advanced fibrosis; FibroTest Score 0.61; FibroTest Stage F3; GGT 57 U/L (5 - 36); Haptoglobin <14 mg/dL (30 - 200)
== END 2019-11-09 04:24 ==
PROVIDERS: PCP Nurse Practitioner Family; Visit Provider Nurse Practitioner Family
DX: I50.812 Chronic right heart failure (principal); Z79.899 Other long term (current) drug therapy; Z79.01 Long term (current) use of anticoagulants; K76.9 Liver disease, unspecified; Z98.890 Other specified postprocedural states; I48.92 Unspecified atrial flutter
CPT/HCPCS: 36415; 80048; 81596; 82306; 82610; 82784; 82977; 85610

== ENCOUNTER 2019-12-12 13:29 | Outpatient (REF) | payer MEDICARE, MEDICAID, SELFPAY ==
[2019-12-12 22:48] LABS: TSH (W/Ref FT4) 218.93 uIU/mL (0.36-3.74)
[2019-12-12 23:06] LABS: FREE T4 0.25 ng/dL (0.76-1.46)
[2019-12-13 16:57] LABS: Anion Gap 10.2 mmol/L (3-11); BUN 19 mg/dL (7-18); CO2 27.8 mmol/L (21.0-32.0); CREATININE 1.32 mg/dL (0.55-1.02); Calcium 9.9 mg/dL (8.5-10.1); Chloride 103 mmol/L (98-107); Estimated GFR 43.14 (mL/min/1.73m2); Glucose 74 mg/dL (74-106); Potassium 4.4 mmol/L (3.5-5.1); Sodium 141 mmol/L (136-145)
== END 2019-12-12 13:49 ==
LOC: NCHCN 13:29
PROVIDERS: PCP Nurse Practitioner Family
DX: R73.03 Prediabetes (principal); E83.52 Hypercalcemia; Q24.9 Congenital malformation of heart, unspecified; E03.9 Hypothyroidism, unspecified
CPT/HCPCS: 80048; 84439; 84443

== ENCOUNTER 2020-01-11 14:10 | Outpatient (REF) | payer MEDICARE, MEDICAID, SELFPAY ==
[2020-01-11 20:53] LABS: Anion Gap 11.1 mmol/L (3-11); BUN 26 mg/dL (7-18); CO2 28.9 mmol/L (21.0-32.0); CREATININE 1.23 mg/dL (0.55-1.02); Calcium 10.9 mg/dL (8.5-10.1); Chloride 100 mmol/L (98-107); Digoxin 0.43 ng/mL (0.90-2.00); Glucose 120 mg/dL (74-106); Potassium 3.4 mmol/L (3.5-5.1); Sodium 140 mmol/L (136-145)
== END 2020-01-11 14:30 ==
LOC: NCHCN 14:10
PROVIDERS: PCP Nurse Practitioner Family
DX: E83.52 Hypercalcemia (principal); Q24.9 Congenital malformation of heart, unspecified; N28.9 Disorder of kidney and ureter, unspecified; R73.03 Prediabetes
CPT/HCPCS: 80048; 80162

== ENCOUNTER 2020-03-12 11:11 | Outpatient (REF) | payer OTHER, MEDICAID, SELFPAY ==
[2020-03-12 22:31] LABS: TSH (W/Ref FT4) 154.19 uIU/mL (0.36-3.74)
[2020-03-12 23:05] LABS: FREE T4 0.54 ng/dL (0.76-1.46)
== END 2020-03-12 11:31 ==
LOC: NCHCN 11:11
PROVIDERS: PCP Nurse Practitioner Family
DX: E03.9 Hypothyroidism, unspecified (principal)
CPT/HCPCS: 84439; 84443

== ENCOUNTER 2020-04-25 18:12 | Outpatient (REF) | payer OTHER, MEDICAID, SELFPAY ==
[2020-04-25 21:04] LABS: INR 1.9 (0.9-1.1)
[2020-04-25 21:11] LABS: TSH (W/Ref FT4) 50.84 uIU/mL (0.36-3.74)
[2020-04-25 21:28] LABS: FREE T4 0.66 ng/dL (0.76-1.46)
== END 2020-04-25 18:32 ==
LOC: NCHCN 18:12
PROVIDERS: PCP Nurse Practitioner Family; Visit Provider Nurse Practitioner Family
DX: E21.0 Primary hyperparathyroidism (principal); Z95.2 Presence of prosthetic heart valve
CPT/HCPCS: 82310; 84439; 84443; 85610

== ENCOUNTER 2020-09-10 12:06 | Outpatient (REF) | payer OTHER, MEDICAID, SELFPAY ==
[2020-09-10 22:22] LABS: HCT 37.2 % (36.0-46.0); HGB 12.3 g/dL (11.2-15.7); MCH 31.8 pg (27.0-33.0); MCHC 33.1 % (32.0-36.0); MCV 96.1 fL (80-95); MPV 10.2 fL (8.0-11.0); Platelet Count 139 10^3/uL (130-400); RBC 3.87 10^6/uL (3.93-5.22); RDW 16.4 % (11.7-14.6); RDW-SD 58.3 fL; WBC 4.81 10^3/uL (4.4-10.8)
[2020-09-10 22:48] LABS: BUN 17 mg/dL (7-18); Calcium 7.8 mg/dL (8.5-10.1); Chloride 100 mmol/L (98-107); Estimated GFR 59.43 (mL/min/1.73m2); Glucose 75 mg/dL (74-106); Potassium 3.5 mmol/L (3.5-5.1); Sodium 142 mmol/L (136-145); TSH (W/Ref FT4) 50.65 uIU/mL (0.36-3.74)
[2020-09-10 22:57] LABS: Vitamin D 25 Total 14.4 ng/ml (30-100)
[2020-09-10 23:19] LABS: FREE T4 1.26 ng/dL (0.76-1.46)
== END 2020-09-10 12:07 | disposition home or self-care (01) ==
LOC: NCHCN 12:06
PROVIDERS: PCP Nurse Practitioner Family
DX: E03.9 Hypothyroidism, unspecified (principal); E83.51 Hypocalcemia; E55.9 Vitamin D deficiency, unspecified; N28.9 Disorder of kidney and ureter, unspecified; Z79.01 Long term (current) use of anticoagulants
CPT/HCPCS: 80048; 82306; 85027; 84439; 84443

== ENCOUNTER 2020-12-10 18:53 | Outpatient (REF) | payer OTHER, MEDICAID, SELFPAY ==
[2020-12-10 21:56] LABS: Abs Immature Grans 0.01 10^3/uL (0.0-0.06); Absolute Basophil Count 0.04 10^3/uL (0.0-0.2); Absolute Eosinophil Count 0.13 10^3/uL (0.0-0.7); Absolute Lymphocyte Count 0.89 10^3/uL (1.2-3.4); Absolute Neutrophil Count 3.96 10^3/uL (1.2-6.7); Basophils % 0.7; Eosinophils % 2.3; HCT 39.9 % (36.0-46.0); Immature Grans % 0.2; Lymphocytes % 15.8; MCH 30.3 pg (27.0-33.0); MCHC 32.6 % (32.0-36.0); Monocytes % 10.7; Neutrophils % 70.3; Nucleated RBC 0 %; Platelet Count 151 10^3/uL (130-400); RBC 4.29 10^6/uL (3.93-5.22); RDW 15.8 % (11.7-14.6); RDW-SD 53.4 fL; WBC 5.63 10^3/uL (4.4-10.8)
[2020-12-10 22:10] LABS: INR 1.7 (0.9-1.1)
[2020-12-10 22:23] LABS: ALT 15 U/L (14-59); AST 22 U/L (15-37); Albumin 4.5 g/dL (3.4-5.0); Alkaline Phosphatase 120 U/L (46-116); Anion Gap 8.9 mmol/L (3-11); BUN 15 mg/dL (7-18); Bilirubin, Total 1.3 mg/dL (0.2-1.0); CO2 32.1 mmol/L (21.0-32.0); CREATININE 0.9 mg/dL (0.55-1.02); Calcium 8.6 mg/dL (8.5-10.1); Chloride 102 mmol/L (98-107); Glucose 84 mg/dL (74-106); Magnesium 1.8 mg/dL (1.8-2.4); Potassium 3.7 mmol/L (3.5-5.1); Sodium 143 mmol/L (136-145); TSH (W/Ref FT4) 3.99 uIU/mL (0.36-3.74); Total Protein 7.6 g/dL (6.4-8.2)
[2020-12-10 22:41] LABS: FREE T4 1.72 ng/dL (0.76-1.46)
== END 2020-12-10 18:54 | disposition home or self-care (01) ==
LOC: NCHCN 18:53
PROVIDERS: PCP Nurse Practitioner Family
DX: E03.9 Hypothyroidism, unspecified (principal); F32.9 Major depressive disorder, single episode, unspecified; K74.60 Unspecified cirrhosis of liver; E21.0 Primary hyperparathyroidism; Z95.2 Presence of prosthetic heart valve
CPT/HCPCS: 80053; 83735; 84439; 84443; 85025; 85610